=== PATIENT | male | born 1940 | race Caucasian/White ===

== ENCOUNTER 2019-05-24 10:56 | Observation (INO) | payer MEDICARE ==
[2019-05-24] MEDS ORDERED: LIDOCAINE 1% INJ 10MG/ML (20 ML MDV) ONE (12:10)
[2019-05-24] MEDS ORDERED: CLOPIDOGREL 75 MG TAB ONE (12:20)
[2019-05-24] MEDS ORDERED: CLOPIDOGREL 75 MG TAB PO ONE (12:26)
[2019-05-24] MEDS ORDERED: BIVALIRUDIN BOLUS 250 MG/50 ML IV ONE (12:27)
[2019-05-24] MEDS ORDERED: BIVALIRUDIN 250 MG in SODIUM CHLORIDE 0.9% 50 ML IV ONE (12:27)
[2019-05-24] MEDS ORDERED: ONDANSETRON 4 MG/2 ML VIAL ONE (12:28)
[2019-05-24] MEDS ORDERED: ONDANSETRON 4 MG/2 ML VIAL IVP ONE (12:30)
[2019-05-24] MEDS: niCARdipine Syringe (1,000 mcg/10 mL) INTRACORON ONE ×2 (12:36→12:44)
[2019-05-24] MEDS: NITROGLYCERIN 1000MCG/10ML SYRINGE INTRACORON ONE ×2 (12:44→12:50)
[2019-05-24] MEDS ORDERED: IV FLUID CONTINUATION 800 ML IV ONE (12:48)
[2019-05-24] MEDS ORDERED: ATROPINE SULFATE 0.1 MG/ML 10ML SYRINGE IV PRN (12:58)
[2019-05-24] MEDS ORDERED: MAG HYDROX/AL HYDROX/SIMETH 30 ML CUP PO PRN (12:58)
[2019-05-24] MEDS ORDERED: NITROGLYCERIN SL TABS 0.4 MG TAB SUBLINGUAL PRN (12:58)
[2019-05-24] MEDS ORDERED: ZOLPIDEM 5 MG TAB PO PRN (12:58)
[2019-05-24] MEDS ORDERED: RX INFO: IV CONTRAST WAS GIVEN 1 EACH MISC MISCELLANE PRN (12:58)
[2019-05-24] MEDS ORDERED: SODIUM CHLORIDE 0.9% 1,000 ML IV SCH (13:00)
[2019-05-24] MEDS ORDERED: IOPAMIDOL-370 125ML BTL INJ ONE (13:00)
--- NOTE | 2019-05-24 13:04 | P.PCN ---
Date of Procedure: 05/24/19 Operative Findings: PERCUTANEOUS CORONARY INTERVENTION Performing physician Steve Adams M.D. Procedure performed 1. Successful stenting of the distal right coronary artery using 3.5 x 18 mm Xience MITZY with an excellent angiographic results 2. Successful stenting of the proximal right coronary artery using 4.0 x 23 mm Xience MITZY with an excellent angiographic results Indication This is an 79-year-old gentleman with history of smoking who presented initially to [facility] with a chest discomfort and jaw discomfort and ruled in for acute nondistended. He underwent a heart catheterization over there and that revealed critical disease involving the distal RCA and severe disease involving the proximal RCA. He was brought today to undergo an intervention. Approach Right common femoral artery Complication None Level of sedation Moderate with sedation length of 41 minutes Procedure description After obtaining an informed consent the patient was brought to the cardiac labor relations analyst. I did exchanged the old 6-[place] sheath into a new 6-[place] sheath. Anticoagulation was initiated using Angiomax with bolus and drip. The RCA was engaged using JR4 guide. The RCA was wired using a whisper J-wire. I did balloon angioplasty of the distal RCA using 30 by 12 mm balloon before I deployed 3.5 x 18 mm Xience MITZY the stent was positioned under fluoroscopy guidance and deployed under 16 bree for 20 seconds. I postdilated the stent using 4 mm noncompliant balloon which was inflated under 18 bree for 20 seconds. For the lesion in the proximal RCA did direct stenting using 40 by 23 mm stent. The stent again was positioned under fluoroscopy guidance and deployed under 14 bree for 20 seconds. The following angiogram showed an excellent angiographic results and the procedure was completed without any complications Postprocedure management 1. Dual antiplatelet therapy 2. Risk factors modification 3. Follow-up with the patient
[2019-05-24] MEDS ORDERED: TAMSULOSIN 0.4 MG CAP.ER.24H PO STA (20:52)
[2019-05-24] MEDS ORDERED: METOPROLOL TARTRATE 12.5 MG TAB PO SCH (21:00)
[2019-05-24] MEDS ORDERED: ATORVASTATIN 80 MG TAB PO SCH (21:00)
[2019-05-25 07:56] LABS: African American GFR (CKD) >90 (>60 ml/min/1.73 sqM); Non-African American GFR(CKD) 82 (>60 ml/min/1.73 sqM)
[2019-05-25 08:10] VITALS: TEMP 97.9
[2019-05-25] MEDS ORDERED: TAMSULOSIN 0.4 MG CAP.ER.24H PO SCH ×2 (08:30→21:00)
[2019-05-25] MEDS ORDERED: CLOPIDOGREL 75 MG TAB PO SCH (09:00)
[2019-05-25] MEDS ORDERED: LISINOPRIL 5 MG TAB PO SCH ×2 (09:00→21:00)
[2019-05-25] MEDS ORDERED: ASPIRIN 325 MG TAB PO SCH (09:00)
[2019-05-25] MEDS ORDERED: METOPROLOL TARTRATE 25 MG TAB PO SCH (09:00)
[2019-05-25] MEDS ORDERED: LISINOPRIL 2.5 MG TAB PO SCH (09:00)
[2019-05-25] MEDS ORDERED: FAMOTIDINE 20 MG TAB PO SCH (09:00)
[2019-05-25 11:47] VITALS: BP 139/79; PULSE 60; RESP 20
--- NOTE | 2019-05-25 11:59 | P.HPIM ---
History of Present Illness H&P Date: 05/25/19 Chief Complaint: Chest pain HISTORY AND PHYSICAL AND DISCHARGE SUMMARY: This is an 79-year-old male patient of Dr. Zavaleta with past medical history of benign prostatic hypertrophy, osteoarthritis, tobacco use and dependence. Patient initially presented to [facility] after having jaw pain for the past 5 days occurring at night lasting initially only a few minutes but became more persistent. The patient does not follow with a dosimetrist has never had a stress test or heart catheterization in the past. He denied having any chest pain or shortness of breath. He did have some nausea that resolved in the hospital. EKG showed ST changes in inferior leads. Troponin was elevated on 3 draws. Patient's vital signs were stable. Initial troponin 2.249. Chest x-ray revealed limited study. No definite acute infiltr ate or vascular decompensation. Cardiology was consulted and Dr. Adams took the patient for heart catheterization which revealed critical disease involving the distal RCA and severe disease involving the proximal RCA. Patient was then transferred to [facility]. Patient was taken directly to the Apiculturist underwent successful stenting of the distal right coronary artery and successful stenting of the proximal right coronary artery. Patient denies any chest pain, shortness of breath. He has a small amount of bruising in the right groin, no hematoma. Patient has been afebrile, heart rate 60, blood pressure 139/79, pulse ox 93% on room air. Repeat creatinine is 0.84. Patient has been seen by Dr. Foote are ready this morning and cleared for discharge. Patient will be discharged home today in stable condition. Review of Systems Constitutional: Denies chills, Denies fatigue, Denies fever, Denies lethargy, Denies malaise, Denies poor appetite, Denies weakness Eyes: denies blurred vision, denies pain, denies loss of vision Ears, nose, mouth and throat: Reports mouth pain, Denies dysphagia, Denies headache, Denies sore throat, Denies vertigo Cardiovascular: Denies chest pain, Denies decreased exercise tolerance, Denies dyspnea on exertion, Denies edema, Denies irregular heart beat, Denies leg edema, Denies lightheadedness, Denies shortness of breath, Denies syncope Respiratory: Denies cough, Denies cough with sputum, Denies dyspnea, Denies excessive sputum, Denies hemoptysis, Denies home oxygen, Denies respiratory infections, Denies wheezing Gastrointestinal: Denies abdominal pain, Denies diarrhea, Denies loss of appetite, Denies nausea, Denies vomiting Genitourinary: Denies dysuria, Denies urinary frequency, Denies urinary retention Musculoskeletal: Denies frequent falls, Denies gait dysfunction, Denies muscle weakness, Denies myalgias Integumentary: Denies pruritus, Denies rash, Denies wounds Neurological: Denies change in mentation, Denies confusion, Denies gait dysfunction, Denies numbness, Denies seizures, Denies vertigo, Denies weakness Psychiatric: Denies anxiety, Denies depression Endocrine: Denies fatigue, Denies weight change Past Medical History Past Medical History: Osteoarthritis (OA), Prostate Disorder Additional Past Medical History / Comment(s): Generalized osteoarthritis, benign prostatic hypertrophy. Additional Past Alcohol Use History / Comment(s): She has been smoking half a pack a cigarettes. Patient does not have home oxygen, no nebulizer, no CPAP. He is and lives at home with his . He is independent for ADLs. - Past Family History Mother Additional Family Medical History / Comment(s): Mother at age 86 from outside numbers dementia. Father Additional Family Medical History / Comment(s): Father at age 71 from old age. Sister(s) Additional Family Medical History / Comment(s): Patient has one sister that at age 60 from pancreatic cancer. Brother(s) Additional Family Medical History / Comment(s): Patient had 1 brother that under the age of 1. Patient has 2 daughters with no major medical problems. Medications and Allergies Home Medications Medication Instructions Recorded Confirmed Type Tamsulosin HCl [Flomax] 0.8 mg PO HS 05/24/19 05/24/19 History Aspirin 81 mg PO DAILY chew 05/25/19 Rx Atorvastatin [Lipitor] 80 mg PO HS #30 tab 05/25/19 Rx Clopidogrel [Plavix] 75 mg PO DAILY #30 tab 05/25/19 Rx Lisinopril [Zestril] 5 mg PO HS #30 tab 05/25/19 Rx Metoprolol Tartrate [Lopressor] 25 mg PO DAILY #30 tab 05/25/19 Rx Nitroglycerin Sl Tabs [Nitrostat] 0.4 mg SUBLINGUAL Q5M PRN #25 tab 05/25/19 Rx Allergies Allergy/AdvReac Type Severity Reaction Status Date / Time iodine Allergy Itching Verified 05/24/19 13:56 Physical Exam Vitals: Intake and Output 05/23/19 05/24/19 05/24/19 22:59 06:59 14:59 Intake Total 316 Balance 316 Intake: IV 316 Other: Weight 90 kg Gen: This is an 79-year-old male. Patient is resting bed appears to be comfortable and in no acute distress. HEENT: Head is atraumatic, normocephalic. Pupils equal, round. Sclerae is anicteric. NECK: Supple. No JVD. No lymphadenopathy. No thyromegaly. LUNGS: Clear to auscultation. No wheezes or rhonchi. No intercostal retractions. HEART: Regular rate and rhythm. No murmur. ABDOMEN: Soft. Bowel sounds are present. No masses. No tenderness. EXTREMITIES: No pedal edema. No calf tenderness. NEUROLOGICAL: Patient is awake, alert and oriented x3. Cranial nerves 2 through 12 are grossly intact. Results CBC & Chem 7: 05/25/19 05:59 Thrombosis Risk Factor Assmnt - DVT/VTE Prophylaxis DVT/VTE Prophylaxis: Pharmacologic Prophylaxis ordered Assessment and Plan Plan: 1. Non-ST elevated myocardial infarction status post successful stenting of the distal right coronary artery and successful stenting of the proximal right coronary artery. Consult with cardiology appreciated. Continue aspirin, atorvastatin, Plavix, lisinopril 2.5 mg daily, Lopressor 12.5 mg twice daily. 2. History of iodine ALLERGY. Continue IV fluids and recheck creatinine in the morning. 3. Tobacco use and dependence. 4. Benign prostatic hypertrophy. Continue Flomax 0.8 mg daily. 5. Generalized osteoarthritis. 6. GI prophylaxis. Pepcid. Patient will be admitted to the hospital for a minimum of 2 night stay. Discharge plan: home Discharge Medication List Tamsulosin HCl [Flomax] 0.8 mg PO HS 05/24/19 [History] Aspirin 81 mg PO DAILY chew 05/25/19 [Rx] Atorvastatin [Lipitor] 80 mg PO HS #30 tab 05/25/19 [Rx] Clopidogrel [Plavix] 75 mg PO DAILY #30 tab 05/25/19 [Rx] Lisinopril [Zestril] 5 mg PO HS #30 tab 05/25/19 [Rx] Metoprolol Tartrate [Lopressor] 25 mg PO DAILY #30 tab 05/25/19 [Rx] Nitroglycerin Sl Tabs [Nitrostat] 0.4 mg SUBLINGUAL Q5M PRN #25 tab 05/25/19 [Rx] Impression and plan of care have been directed as dictated by the signing physician. Lashell Fox nurse practitioner acting as scribe for signing physician.
[2019-05-25 12:25] VITALS: BMI 28.5
--- NOTE | 2019-05-25 12:51 | PN ---
PROGRESS NOTE Mr. Valdovinos is an 79-year-old gentleman who presented with chest pain and had a non-ST elevation IA at [facility] underwent cardiac cath was by Dr. Adams, transferred here. He had stenting of distal and proximal RCA with good result. Postprocedure course is uneventful. His right groin is clean and dry. Vitals are stable. No JVD. S1, S2 heard normally. Lungs reveal diminished air entry. Abdomen and lower extremity exam unchanged. Right groin is clean and dry. EKG and labs are unremarkable. Patient can be discharged today and he will see Dr. Adams in one week. Discharge instructions regarding his medications, diet, activity were given. I personally gave all the prescriptions for the patient. MMODL / IJN: [id number] /
[2019-05-26] MEDS ORDERED: ASPIRIN 81 MG PO SCH (09:00)
== END 2019-05-25 12:51 | disposition home or self-care (01) ==
LOC: INTOOBSV 11:46 → 3SCARD 11:46 → UNDODISIN 05-25 12:51
PROVIDERS: ADMIT Internal Medicine Geriatric Medicine; ATTEND Internal Medicine Geriatric Medicine
DX: I21.4 Non-ST elevation (NSTEMI) myocardial infarction (principal); I25.10 Atherosclerotic heart disease of native coronary artery without angina pectoris; M15.9 Polyosteoarthritis, unspecified; N40.0 Benign prostatic hyperplasia without lower urinary tract symptoms; Z79.02 Long term (current) use of antithrombotics/antiplatelets; Z79.82 Long term (current) use of aspirin; Z79.899 Other long term (current) drug therapy; Z80.0 Family history of malignant neoplasm of digestive organs; Z91.041 Radiographic dye allergy status; F17.210 Nicotine dependence, cigarettes, uncomplicated
CPT/HCPCS: 93005; 82565; G0378 ×2; G0379; C9600; C1760; C1769 ×3; C1887; C1725 ×2; C1894; C1874; J2405; J0583; Q9967

== ENCOUNTER → 2022-04-17 | Outpatient (CLI) | payer MEDICARE | END | disposition home or self-care (01) | LOC: LABPAT 08:13 | PROVIDERS: ATTEND Internal Medicine Interventional Cardiology | DX: Z53.9 Procedure and treatment not carried out, unspecified reason (principal) ==

== ENCOUNTER 2022-04-22 07:44 | Day surgery (SDC) | payer MEDICARE ==
[~2022-04-22 07:44] MED LIST: ALPRAZolam 0.25 MG TAB PO PRN; ALPRAZolam 0.5 MG TAB PO PRN; ASPIRIN 325 MG TAB PO STA; ATORVASTATIN 80 MG TAB PO STA; HEPARIN SODIUM,PORCINE 10,000 UNIT in SODIUM CHLORIDE 0.9% 1,000 ML IRRIGATION PRN; HEPARIN SODIUM,PORCINE 2,500 UNIT in SODIUM CHLORIDE 0.9% 250 ML IRRIGATION PRN; NITROGLYCERIN SL TABS 0.4 MG TAB SUBLINGUAL PRN; SODIUM CHLORIDE 0.9% 1,000 ML in EMPTY BAG 1 BAG IV SCH
[2022-04-22 08:08] VITALS: RESP 18; TEMP 98.1
[2022-04-22] MEDS ORDERED: VERAPAMIL 2.5 MG/ML 2 ML AMP ONE (09:02)
[2022-04-22] MEDS ORDERED: fentaNYL (PF) 50 MCG/ML 2 ML AMP ONE (09:25)
[2022-04-22] MEDS ORDERED: MIDAZOLAM 2 MG/2 ML VIAL IV ONE ×3 (09:35→09:56)
[2022-04-22] MEDS ORDERED: fentaNYL (PF) 50 MCG/ML 2 ML AMP IV ONE (09:43)
[2022-04-22] MEDS ORDERED: VERAPAMIL SYRINGE (5 MG/10 ML) INTRAARTER ONE (09:48)
[2022-04-22] MEDS ORDERED: LIDOCAINE 1% INJ 10MG/ML (5 ML VIAL-PF) SQ ONE (09:48)
[2022-04-22] MEDS ORDERED: HEPARIN SODIUM 1,000 UN/ML (10ML VL) IV ONE ×2 (09:48→09:55)
[2022-04-22] MEDS ORDERED: CLOPIDOGREL 75 MG TAB ONE (09:59)
[2022-04-22] MEDS ORDERED: CLOPIDOGREL 75 MG TAB PO ONE (10:06)
[2022-04-22] MEDS ORDERED: IOPAMIDOL-370 125ML BTL INJ ONE (10:11)
[2022-04-22] MEDS ORDERED: NITROGLYCERIN SL TABS 0.4 MG TAB SUBLINGUAL PRN ×2 (10:25→10:26)
[2022-04-22] MEDS ORDERED: MAG HYDROX/AL HYDROX/SIMETH 30 ML CUP PO PRN (10:26)
[2022-04-22] MEDS ORDERED: ZOLPIDEM 5 MG TAB PO PRN (10:26)
[2022-04-22] MEDS ORDERED: RX INFO: IV CONTRAST WAS GIVEN 1 EACH MISC MISCELLANE PRN (10:26)
[2022-04-22] MEDS ORDERED: ATROPINE SULFATE 0.1 MG/ML 10ML SYRINGE IV PRN (10:26)
[2022-04-22] MEDS ORDERED: SODIUM CHLORIDE 0.9% 1,000 ML in EMPTY BAG 1 BAG IV SCH (10:30)
--- NOTE | 2022-04-22 10:34 | P.PCN ---
Date of Procedure: 04/22/22 Operative Findings: CARDIAC CATHETERIZATION AND PERCUTANEOUS CORONARY INTERVENTION PERFORMING PHYSICIAN: Steve Adams MD, [facility] PROCEDURE PERFORMED: 1. Selective right and left coronary angiogram 2. Successful stenting of mid LAD using 3.5 x 18 mm Xience MITZY with an excellent angiographic results and without adjunctive use of IVUS INDICATION: Chest discomfort in this 82-year-old gentleman who underwent myocardial perfusion imaging stress test and that showed an anterior ischemia. He is known to have CAD with prior stenting of the RCA as well as hypertension and dyslipidemia COMPLICATION: None APPROACH: Right radial artery LEVEL OF SEDATION: Moderate with the sedation time off 26 minutes PROCEDURE DESCRIPTION: After obtaining an informed consent the patient was brought to the cardiac label sewer. The right radial artery was cannulated using micropuncture technique, the micropuncture wire passed easily then I placed a 6-[place] sheath. I gave the patient after that 2 mg of verapamil intra-arterial and a total of 6000 use of heparin and intravenous. Selective right and left coronary angiogram performed using JR4 and JL 3.5 catheters. After that I did intervene on the LAD. The procedure was completed was no complication SELECTIVE CORONARY ANGIOGRAM: The right coronary artery: Large caliber vessel and a dominant vessel. The proximal RCA has intermediate lesion appears to be in the range of 60%. The RCA after that is a stented and the stent is patent. The mid RCA has another intermediate lesion was eccentric lesion appears to be in the range of 50-60% as well. Distally the RCA bifurcates into PDA and PLV branches. The PDA has also an intermediate lesion appears to be in the range of 50%. Left main: Is angiographically normal. Bifurcates into an LCx and LAD The left circumflex: Large-caliber vessel nondominant vessel. The LCx has intermediate lesion appeared to be in the range of 60%. The left anterior descending artery: Large caliber vessel. The proximal LAD appeared to have mild disease only. The mid LAD after the takeoff of a large diagonal branch has a lesion appeared to be in the range of 80%. The LAD distally appears to be angiographically normal. The diagonal appeared to be angiographically normal PCI OF THE LAD: Anticoagulation was initiated using heparin with continuous ACT monitoring. Subsequently I did engage the left main using JL 3.5 guiding catheter. I did wire the LAD using a run-through wire. Intravascular ultrasound was performed and showed a diameter of the LAD about 3.5-4 mm. I did predilatation using 3.5 mm balloon before I deployed 3.5 x 18 mm stent where the stent was positioned under fluoroscopy guidance and deployed under 20 bree for 20 seconds. The following angiogram showed an excellent angiographic results was JOAQUÍN-3 flow. The procedure was completed was no complication CONCLUSION: Severe disease involving the mid LAD. I did perform successful stenting of the LAD Intermediate disease involving the RCA Intermediate disease involving the LCx POSTPROCEDURE MANAGEMENT: 1. Dual antiplatelet therapy using aspirin and Plavix for 6 month 2. FFR of the RCA and LCx if the patient remains symptomatic 3. Follow-up with the patient
[2022-04-22] MEDS ORDERED: SODIUM CHLORIDE 0.9% 500 ML 500 ML IV ONE (12:00)
[2022-04-22 13:52] VITALS: BP 120/67; PULSE 65
[2022-04-22] MEDS ORDERED: TAMSULOSIN 0.4 MG CAP.ER.24H PO SCH (21:00)
[2022-04-22] MEDS ORDERED: ATORVASTATIN 80 MG TAB PO SCH (21:00)
[2022-04-22] MEDS ORDERED: lisinopriL 10 MG TAB PO SCH (21:00)
[2022-04-23] MEDS ORDERED: ASPIRIN 81 MG PO SCH (09:00)
[2022-04-23] MEDS ORDERED: B6 PO SCH (09:00)
[2022-04-23] MEDS ORDERED: NON FORMULARY DRUG (Omega-3 Fatty Acids/Fish Oil [Omega-3 Fish Oil 1,200 Mg Sfgl] 1 EACH C PO SCH (09:00)
[2022-04-23] MEDS ORDERED: CLOPIDOGREL 75 MG TAB PO SCH (09:00)
[2022-04-23] MEDS ORDERED: ASCORBIC ACID 500 MG TAB PO SCH (09:00)
[2022-04-23] MEDS ORDERED: [UNRECOGNIZED DRUG - OTHER] PO SCH (09:00)
[2022-04-23] MEDS ORDERED: FOLIC ACID-VIT B COMPLEX-VIT C 1 CAP PO SCH (09:00)
[2022-04-23] MEDS ORDERED: B12 PO SCH (09:00)
[2022-04-23] MEDS ORDERED: METOPROLOL TARTRATE 25 MG TAB PO SCH (09:00)
== END 2022-04-22 14:28 | disposition home or self-care (01) ==
LOC: CATHCVL 07:44 → 6NMEDSUR 10:31 → CATHCVL 14:28
PROVIDERS: ATTEND Internal Medicine Interventional Cardiology
DX: I25.10 Atherosclerotic heart disease of native coronary artery without angina pectoris (principal); E78.5 Hyperlipidemia, unspecified; I10 Essential (primary) hypertension; Z95.5 Presence of coronary angioplasty implant and graft
CPT/HCPCS: 93458; 92978; C9600; C1887; C1769 ×2; C1894; C1725; C1753; C1874; J2250; J2001; J3010; J1644; Q9967

== ENCOUNTER → 2022-08-09 | Outpatient (CLI) | payer MEDICARE ==
--- NOTE | 2022-08-09 10:39 | XR ---
EXAMINATION TYPE: XR sacroiliac joint comp BILAT DATE OF EXAM: 08/09/2022 COMPARISON: None HISTORY: Right-sided pain TECHNIQUE: 3 views sacroiliac joints FINDINGS: Sacroiliac joints are patent. The sacrum appears intact. No acute fracture or dislocation i s evident. IMPRESSION: 1. No acute osseous abnormality sacroiliac joints
[2022-08-09 16:18] LABS: ALT 18 U/L (10-49); AST 18 U/L (14-35); Albumin 4.2 d/dL (3.8-4.9); Albumin/Globulin Ratio 1.83 Ratio (1.60-3.17); Alkaline Phosphatase 67 U/L (41-126); BUN/Creat Ratio 17.78 Ratio (12.00-20.00); Calcium 9.7 mg/dL (8.7-10.3); Carbon Dioxide 24.9 mmol/L (21.6-31.8); Chloride 107 mmol/L (96-109); Globulin 2.3 d/dL (1.6-3.3); Glucose 105 mg/dL (70-110); Potassium 4.7 mmol/L (3.5-5.5); Sodium 140 mmol/L (135-145); Total Bilirubin 0.5 mg/dL (0.3-1.2); Total Protein 6.5 d/dL (6.2-8.2)
[2022-08-09 18:19] LABS: Basophils # (A) 0.04 X 10*3/uL (0.00-0.10); Basophils % (A) 0.6 %; Eosinophils # (A) 0.22 X 10*3/uL (0.04-0.35); Eosinophils % (A) 3.2 %; HCT 51.3 % (39.6-50.0); HGB 16.5 d/dL (12.0-15.0); Lymphocytes # (A) 1.88 X 10*3/uL (0.90-5.00); Lymphocytes % (A) 27.5 %; MCH 30.9 pg (27.0-32.0); MCHC 32.2 d/dL (32.0-37.0); MCV 96.1 FL (80.0-97.0); Mean Platelet Volume 10.4 FL (9.5-12.2); Monocytes % (A) 8.8 %; NRBC Per 100 WBC 0 X 10*3/uL (0.00-0.01); Neutrophils # (A) 4.08 X 10*3/uL (1.80-7.70); Neutrophils % (A) 59.8 %; Platelet Count 161 X 10*3/uL (140-440); RBC 5.34 X 10*6/uL (4.40-5.60); RDW 13.7 % (11.5-14.5); WBC 6.83 X 10*3/uL (4.50-10.00)
== END | disposition home or self-care (01) ==
LOC: LABWHC1 09:02
PROVIDERS: ATTEND Family Medicine
DX: M53.3 Sacrococcygeal disorders, not elsewhere classified (principal); Z95.5 Presence of coronary angioplasty implant and graft
CPT/HCPCS: 36415; 72202; 80053; 85025

== ENCOUNTER 2022-10-25 09:19 | Emergency (ER) | payer MEDICARE ==
[2022-10-25 09:24] VITALS: RESP 20; TEMP 98
--- NOTE | 2022-10-25 10:16 | XR ---
EXAMINATION TYPE: XR elbow complete RT DATE OF EXAM: 10/25/2022 CLINICAL HISTORY: pain TECHNIQUE: Frontal, lateral and oblique images of the right elbow are obtained. COMPARISON: None. FINDINGS: There is no acute fracture/dislocation evident of the elbow. No abnormal fat pad signs ar e seen. The overlying soft tissue appears unremarkable. IMPRESSION: There is no acute fracture or dislocation of the elbow. ICD 10 NO FRACTURE, INITIAL EVALUATION
--- NOTE | 2022-10-25 10:42 | ED ---
Upper Extremity HPI - General Chief Complaint: Extremity Injury, Upper Stated Complaint: R Arm Pain playing Golf Time Seen by Provider: 10/25/22 09:26 Source: patient, RN notes reviewed Mode of arrival: ambulatory Limitations: no limitations - History of Present Illness Initial Comments: 82-year-old male presents emergency Department chief complaint of right elbow pain. Patient states his golfing states he felt a little twinge in his arm states he can't swing again a worsening symptoms. Patient states he felt a sudden pop in his elbow, forearm region. He states it is bruising noted. Patient denies any other trauma. Patient does have full range of motion denies any paresthesias. - Related Data Home Medications Medication Instructions Recorded Confirmed Tamsulosin HCl [Flomax] 0.8 mg PO HS 05/24/19 04/22/22 Ascorbic Acid [Vitamin C] 1 tab PO DAILY 04/19/22 04/22/22 B12/Methyltetrahydrofolate/B6 1 tab PO DAILY 04/19/22 04/22/22 [Methyl T73-Ewgmhe Folate-P5p (Foltx geq)] [place]-3 Fatty Acids/Fish Oil 1 each PO DAILY 04/19/22 04/22/22 [[place]-3 Fish Oil 1,200 mg Sfgl] Vit B Comp No.3/Folic/C/Biotin 1 tab PO DAILY 04/19/22 04/22/22 [Zina-Jay Rx Tablet] lisinopriL [Zestril] 10 mg PO HS 04/19/22 04/22/22 Previous Rx's Medication Instructions Recorded Aspirin 81 mg PO DAILY chew 05/25/19 Atorvastatin [Lipitor] 80 mg PO HS #30 tab 05/25/19 Metoprolol Tartrate [Lopressor] 25 mg PO DAILY #30 tab 05/25/19 Nitroglycerin Sl Tabs [Nitrostat] 0.4 mg SUBLINGUAL Q5M PRN #25 tab 05/25/19 Allergies Allergy/AdvReac Type Severity Reaction Status Date / Time iodine Allergy Itching Verified 10/25/22 09:23 Review of Systems ROS Statement: Those systems with pertinent positive or pertinent negative responses have been documented in the HPI. ROS Other: All systems not noted in ROS Statement are negative. Past Medical History Past Medical History: Chest Pain / Angina, Hyperlipidemia, Hypertension, Myocardial Infarction (NM), Osteoarthritis (OA), Prostate Disorder Additional Past Medical History / Comment(s): Generalized osteoarthritis, benign prostatic hypertrophy. had a postitve stress test 3 weeks ago Last Myocardial Infarction Date:: 2019 History of Any Multi-Drug Resistant Organisms: None Reported Past Surgical History: Heart Catheterization With Stent Additional Past Surgical History / Comment(s): Heart cath this admission. Past Anesthesia/Blood Transfusion Reactions: No Reported Reaction Additional Past Anesthesia/Blood Transfusion Reaction / Comment(s): Never had transfusion Date of Last Stent Placement:: 05/24/2019 Past Psychological History: No Psychological Hx Reported Smoking Status: Current some day smoker Past Alcohol Use History: None Reported Past Drug Use History: None Reported - Past Family History Mother Additional Family Medical History / Comment(s): Mother at age 86 from outside numbers dementia. Father Additional Family Medical History / Comment(s): Father at age 71 from old age. Sister(s) Additional Family Medical History / Comment(s): Patient has one sister that at age 60 from pancreatic cancer. Brother(s) Additional Family Medical History / Comment(s): Patient had 1 brother that under the age of 1. Patient has 2 daughters with no major medical problems. General Exam Limitations: no limitations General appearance: alert, in no apparent distress Head exam: Present: atraumatic, normocephalic, normal inspection Respiratory exam: Present: normal lung sounds bilaterally. Absent: respiratory distress, wheezes, rales, rhonchi, stridor Cardiovascular Exam: Present: regular rate, normal rhythm, normal heart sounds. Absent: systolic murmur, diastolic murmur, rubs, gallop, clicks Extremities exam: Present: other (Left elbow there is medial tenderness, swelling, ecchymosis noted neurovascular intact full range of motion) Course Vital Signs 10/25/22 09:21 Temperature 98 F Pulse Rate 65 Respiratory 20 Rate Blood Pressure 138/82 O2 Sat by Pulse 96 Oximetry Medical Decision Making - Medical Decision Making Was pt. sent in by a medical professional or institution (, PA, DISABILITY BENEFITS SPECIALIST, urgent care, hospital, or skilled nursing...) When possible be specific @ -No Did you speak to anyone other than the patient for history (EMS, parent, family, police, friend...)? What history was obtained from this source @ -No Did you review nursing and triage notes (agree or disagree)? Why? @ -I reviewed and agree with nursing and triage notes Were old charts reviewed (outside hosp., previous admission, EMS record, old EKG, old radiological studies, urgent care reports/EKG's, skilled nursing records)? Report findings @ -No old charts were reviewed Differential Diagnosis (chest pain, altered mental status, abdominal pain women, abdominal pain men, vaginal bleeding, weakness, fever, dyspnea, syncope, headache, dizziness, GI bleed, back pain, seizure, CVA, palpatations, mental health, musculoskeletal)? @ -Arm fracture, muscle tear, ligament injury EKG interpreted by me (3pts min.). @ -None X-rays interpreted by me (1pt min.). @ -X-ray shows no acute fracture discussion right elbow CT interpreted by me (1pt min.). @ -None done U/S interpreted by me (1pt. min.). @ -None done What testing was considered but not performed or refused? (CT, X-rays, U/S, labs )? Why? @ -None What meds were considered but not given or refused? Why? @ -None Did you discuss the management of the patient with other professionals (professionals i.e. , PA, DISABILITY BENEFITS SPECIALIST, lab, RT, psych nurse, child welfare social worker, pierce and shave press operator, teacher, nuclear officer, case managers)? Give summary @ -No Was smoking cessation discussed for >3mins.? @ -No Was critical care preformed (if so, how long)? @ -No Were there social determinants of health that impacted care today? How? (Homelessness, low income, unemployed, alcoholism, drug addiction, transportation, low edu. Level, literacy, decrease access to med. care, snf, rehab)? @ -No Was there de-escalation of care discussed even if they declined (Discuss DNR or withdrawal of care, Hospice)? DNR status @ -No What co-morbidities impacted this encounter? (DM, HTN, Smoking, COPD, CAD, Cancer, CVA, ARF, Chemo, Hep., AIDS, mental health diagnosis, sleep apnea, morbid obesity)? @ -None Was patient admitted / discharged? Hospital course, mention meds given and route, prescriptions, significant lab abnormalities, going to OR and other pertinent info. @ -Discharge patient's x-rays are negative patient symptoms are consistent with a muscular tear possible ligamentous injury. Patient follow-up with orthopedics return parameters discussed. Undiagnosed new problem with uncertain prognosis? @ -No Drug Therapy requiring intensive monitoring for toxicity (Heparin, Nitro, Insulin, Cardizem)? @ -No Were any procedures done? @ -[No] Diagnosis/symptom? @ -[Right arm/elbow muscles tear] Acute, or Chronic, or Acute on Chronic? @ -[Acute] Uncomplicated (without systemic symptoms) or Complicated (systemic symptoms)? @ -[Uncomplicated] Side effects of treatment? @ -[No] Exacerbation, Progression, or Severe Exacerbation? @ -[No] Poses a threat to life or bodily function? How? (Chest pain, USA, NM, pneumonia, PE, COPD, DKA, ARF, appy, cholecystitis, CVA, Diverticulitis, Homicidal, Suicidal, threat to staff... and all critical care pts) @ -[No] Disposition Clinical Impression: Tear of pronator muscle of right upper extremity, Strain of elbow Disposition: HOME SELF-CARE Condition: Stable Instructions (If sedation given, give patient instructions): Elbow Sprain (ED) Additional Instructions: Please return to the Emergency Department if symptoms worsen or any other concerns. Is patient prescribed a controlled substance at d/c from ED?: No Referrals: Thomas Hussein MD [REFERRING] - 1-2 days Domenico Nails MD [Medical Doctor] - 1-2 days Time of Disposition: 10:41
[2022-10-25 11:14] VITALS: BP 136/80; PULSE 68
== END 2022-10-25 11:13 | disposition home or self-care (01) ==
LOC: EC 09:19
DX: S53.401A Unspecified sprain of right elbow, initial encounter (principal); E78.5 Hyperlipidemia, unspecified; I10 Essential (primary) hypertension; I25.2 Old myocardial infarction; M19.90 Unspecified osteoarthritis, unspecified site; F17.200 Nicotine dependence, unspecified, uncomplicated; Z88.8 Allergy status to other drugs, medicaments and biological substances; Z79.899 Other long term (current) drug therapy; X50.9XXA Other and unspecified overexertion or strenuous movements or postures, initial encounter; Y93.53 Activity, golf
CPT/HCPCS: 99283

== ENCOUNTER 2023-03-21 10:09 | Inpatient (IN) | payer MEDICARE ==
--- NOTE | 2023-03-21 10:36 | ED ---
General Adult HPI - General Chief complaint: Recheck/Abnormal Lab/Rx Stated complaint: Cardiac issues Time Seen by Provider: 03/21/23 10:23 Source: patient, EMS, RN notes reviewed Mode of arrival: EMS Limitations: no limitations - History of Present Illness Initial comments: 83-year-old male presents to the emergency department sent from Dr. Nieves's [place] for slow heart rate with frequent PVCs. Patient reports feeling lightheaded at that time. He denies any current symptoms of shortness of breath, chest pain. He had an EKG performed at his primary care provider's office today in which patient had frequent PVCs and bradycardia. EMS was called to bring the patient in for evaluation. According to the patient, Dr. Nieves also contacted his science center display builder, Dr. Adams. He denies chest pain, shortness of breath, lower extremity edema. - Related Data Home Medications Medication Instructions Recorded Confirmed Tamsulosin HCl [Flomax] 0.8 mg PO HS 05/24/19 03/21/23 [place]-3 Fatty Acids/Fish Oil 1 cap PO DAILY 04/19/22 03/21/23 [[place]-3 Fish Oil 1,200 mg Sfgl] lisinopriL [Zestril] 10 mg PO HS 04/19/22 03/21/23 Cholecalciferol [Vitamin D3 (125 125 mcg PO DAILY 03/21/23 03/21/23 Mcg = 5000 Iu)] Clopidogrel [Plavix] 75 mg PO DAILY 03/21/23 03/21/23 Lactulose 10 gm PO DAILY 03/21/23 03/21/23 Multivit-Mins/Iron/Folic/Lycop 1 tab PO DAILY 03/21/23 03/21/23 [Centrum Men's Tablet] Vitamin B-12(Unknown Dose) 1 tab PO DAILY 03/21/23 03/21/23 traMADol HCL 50 mg PO TID PRN 03/21/23 03/21/23 Previous Rx's Medication Instructions Recorded Aspirin 81 mg PO DAILY chew 05/25/19 Atorvastatin [Lipitor] 80 mg PO HS #30 tab 05/25/19 Metoprolol Tartrate [Lopressor] 25 mg PO DAILY #30 tab 05/25/19 Allergies Allergy/AdvReac Type Severity Reaction Status Date / Time Iodinated Contrast Media Allergy Rash/Hives Verified 03/21/23 12:32 iodine Allergy Itching Verified 10/25/22 09:23 Review of Systems ROS Statement: Those systems with pertinent positive or pertinent negative responses have been documented in the HPI. ROS Other: All systems not noted in ROS Statement are negative. Past Medical History Past Medical History: Chest Pain / Angina, Hyperlipidemia, Hypertension, Myocardial Infarction ([place]), Osteoarthritis ([place]), Prostate Disorder Additional Past Medical History / Comment(s): Generalized osteoarthritis, benign prostatic hypertrophy. had a postitve stress test 3 weeks ago Last Myocardial Infarction Date:: 2019 History of Any Multi-Drug Resistant Organisms: None Reported Past Surgical History: Heart Catheterization With Stent Additional Past Surgical History / Comment(s): Heart cath this admission. Past Anesthesia/Blood Transfusion Reactions: No Reported Reaction Additional Past Anesthesia/Blood Transfusion Reaction / Comment(s): Never had transfusion Date of Last Stent Placement:: 05/24/2019 Past Psychological History: No Psychological Hx Reported Smoking Status: Current every day smoker Past Alcohol Use History: None Reported Past Drug Use History: None Reported - Past Family History Mother Additional Family Medical History / Comment(s): Mother at age 86 from outside numbers dementia. Father Additional Family Medical History / Comment(s): Father at age 71 from old age. Sister(s) Additional Family Medical History / Comment(s): Patient has one sister that at age 60 from pancreatic cancer. Brother(s) Additional Family Medical History / Comment(s): Patient had 1 brother that under the age of 1. Patient has 2 daughters with no major medical problems. General Exam Limitations: no limitations General appearance: alert, in no apparent distress Head exam: Present: atraumatic, normocephalic, normal inspection Eye exam: Present: normal appearance, PERRL, EOMI. Absent: scleral icterus, conjunctival injection, periorbital swelling ENT exam: Present: normal exam, mucous membranes moist Neck exam: Present: normal inspection. Absent: tenderness, meningismus, lymphadenopathy Respiratory exam: Present: normal lung sounds bilaterally. Absent: respiratory distress, wheezes, rales, rhonchi, stridor Course Vital Signs 03/21/23 03/21/23 03/21/23 10:18 11:00 12:00 Temperature 98.0 F Pulse Rate 62 63 59 L Respiratory 18 20 21 Rate Blood Pressure 159/86 159/135 166/89 O2 Sat by Pulse 95 95 96 Oximetry 03/21/23 03/21/23 03/21/23 12:30 14:00 15:00 Temperature Pulse Rate 70 Respiratory 22 Rate Blood Pressure 152/84 156/90 156/90 O2 Sat by Pulse Oximetry Medical Decision Making - Medical Decision Making Was pt. sent in by a medical professional or institution (, FRANCO, MANAGER OF SUSTAINABILITY, urgent care, hospital, or assisted...) When possible be specific @ -Sent in by Dr. Nieves's office via EMS Did you speak to anyone other than the patient for history (EMS, parent, family, police, friend...)? What history was obtained from this source @ -No Did you review nursing and triage notes (agree or disagree)? Why? @ -I reviewed and agree with nursing and triage notes Were old charts reviewed (outside hosp., previous admission, EMS record, old EKG, old radiological studies, urgent care reports/EKG's, assisted records)? Report findings @ -No old charts were reviewed Differential Diagnosis (chest pain, altered mental status, abdominal pain women, abdominal pain men, vaginal bleeding, weakness, fever, dyspnea, syncope, headache, dizziness, GI bleed, back pain, seizure, CVA, palpatations, mental health, musculoskeletal)? @ -Differential Dizziness: Benign paroxysmal positional Vertigo, Menieres disease, otitis media, acoustic neuroma, vertebrobasilar insufficiency, cerebellar stroke, encephalitis, hypovolemic, arrhythmia, coronary artery syndrome, anemia, this is not meant to be an all-inclusive list EKG interpreted by me (3pts min.). @ -EKG at 11:00 shows sinus rhythm with occasional PVCs rate 64, MO 207, QRS 115 X-rays interpreted by me (1pt min.). @ -Chest XR shows no acute process with COPD type changes CT interpreted by me (1pt min.). @ -None done U/S interpreted by me (1pt. min.). @ -None done What testing was considered but not performed or refused? (CT, X-rays, U/S, labs)? Why? @ -None What meds were considered but not given or refused? Why? @ -None Did you discuss the management of the patient with other professionals (jeanette paris i.e. Dr., PA, MANAGER OF SUSTAINABILITY, lab, RT, psych nurse, social insurance administrator, trial lawyer, teacher, licensed loan officer, returned case inspector)? Give summary @ -Management discussed with Dr. Diggs who was accepting of the admission. Was smoking cessation discussed for >3mins.? @ -No Was critical care preformed (if so, how long)? @ -No Were there social determinants of health that impacted care today? How? (Homelessness, low income, unemployed, alcoholism, drug addiction, transportation, low edu. Level, literacy, decrease access to med. care, shelter, rehab)? @ -No Was there de-escalation of care discussed even if they declined (Discuss DNR or withdrawal of care, Hospice)? DNR status @ -No What co-morbidities impacted this encounter? (DM, HTN, Smoking, COPD, CAD, Cancer, CVA, ARF, Chemo, Hep., AIDS, mental health diagnosis, sleep apnea, morbid obesity)? @ -None Was patient admitted / discharged? Hospital course, mention meds given and route, prescriptions, significant lab abnormalities, going to OR and other pe rtinent info. @ -Admitted. Patient presented to the emergency department via EMS from Dr. Nieves's office. Patient was found to be bradycardic with frequent PVCs on EKG performed in the office. He had this done because he reported intermittent episodes of lightheadedness. He reports that he was feeling that way when the EKG was taken. The EKG showed frequent PVCs with bradycardia. Our EKG obtained shows occasional PVCs rate 64. Patient placed on camp program director. Laboratory studies obtained.CBC essentially unremarkable; CMP shows sodium 138, testing 4.4, creatinine 0.88, troponin 0.01 2 . Patient will be admitted with cardiology consult. Case discussed with Dr. Diggs who is accepting of the admission. Patient stable at time of admission. Case discussed with Dr. Velasco Undiagnosed new problem with uncertain prognosis? @ -No Drug Therapy requiring intensive monitoring for toxicity (Heparin, Nitro, Insulin, Cardizem)? @ -No Were any procedures done? @ -No Diagnosis/symptom? @ -Bradycardia, PVCs, lightheadedness Acute, or Chronic, or Acute on Chronic? @ -Acute Uncomplicated (without systemic symptoms) or Complicated (systemic symptoms)? @ -Uncomplicated Side effects of treatment? @ -No Exacerbation, Progression, or Severe Exacerbation? @ -No Poses a threat to life or bodily function? How? (Chest pain, [place], GA, pneumonia, PE, COPD, DKA, ARF, appy, cholecystitis, CVA, Diverticulitis, Homicidal, Suicidal, threat to staff... and all critical care pts) @ -No - Lab Data Result diagrams: 03/21/23 10:37 03/21/23 10:37 Lab Results 03/21/23 03/21/23 03/21/23 Range/Units 10:37 10:37 10:37 WBC 7.5 (3.8-10.6) k/uL RBC 5.39 (4.30-5.90) m/uL Hgb 16.7 (13.0-17.5) gm/dL Hct 50.7 (39.0-53.0) % MCV 94.0 (80.0-100.0) fL MCH 30.9 (25.0-35.0) pg MCHC 32.9 (31.0-37.0) g/dL RDW 13.5 (11.5-15.5) % Plt Count 161 (150-450) k/uL MPV 7.3 Neutrophils % 66 % Lymphocytes % 24 % Monocytes % 6 % Eosinophils % 2 % Basophils % 0 % Neutrophils # 5.0 (1.3-7.7) k/uL Lymphocytes # 1.8 (1.0-4.8) k/uL Monocytes # 0.4 (0-1.0) k/uL Eosinophils # 0.2 (0-0.7) k/uL Basophils # 0.0 (0-0.2) k/uL PT (10.0-12.5) sec INR (<1.2) D-Dimer (<0.60) mg/L FEU Sodium 138 (137-145) mmol/L Potassium 4.4 (3.5-5.1) mmol/L Chloride 109 H (98-107) mmol/L Carbon Dioxide 23 (22-30) mmol/L Anion Gap 6 mmol/L BUN 21 H (9-20) mg/dL Creatinine 0.88 (0.66-1.25) mg/dL Est GFR (CKD-EPI)AfAm >90 (>60 ml/min/1.73 sqM) Est GFR (CKD-EPI)NonAf 79 (>60 ml/min/1.73 sqM) Glucose 106 H (74-99) mg/dL Calcium 9.2 (8.4-10.2) mg/dL Total Bilirubin 0.9 (0.2-1.3) mg/dL AST 25 (17-59) U/L ALT 14 (4-49) U/L Alkaline Phosphatase 74 (38-126) U/L Troponin I 0.012 (0.000-0.034) ng/mL Total Protein 6.9 (6.3-8.2) g/dL Albumin 3.9 (3.5-5.0) g/dL 03/21/23 03/21/23 Range/Units 10:37 10:37 WBC (3.8-10.6) k/uL RBC (4.30-5.90) m/uL Hgb (13.0-17.5) gm/dL Hct (39.0-53.0) % MCV (80.0-100.0) fL MCH (25.0-35.0) pg MCHC (31.0-37.0) g/dL RDW (11.5-15.5) % Plt Count (150-450) k/uL MPV Neutrophils % % Lymphocytes % % Monocytes % % Eosinophils % % Basophils % % Neutrophils # (1.3-7.7) k/uL Lymphocytes # (1.0-4.8) k/uL Monocytes # (0-1.0) k/uL Eosinophils # (0-0.7) k/uL Basophils # (0-0.2) k/uL PT 11.2 (10.0-12.5) sec INR 1.0 (<1.2) D-Dimer 1.90 H (<0.60) mg/L FEU Sodium (137-145) mmol/L Potassium (3.5-5.1) mmol/L Chloride (98-107) mmol/L Carbon Dioxide (22-30) mmol/L Anion Gap mmol/L BUN (9-20) mg/dL Creatinine (0.66-1.25) mg/dL Est GFR (CKD-EPI)AfAm (>60 ml/min/1.73 sqM) Est GFR (CKD-EPI)NonAf (>60 ml/min/1.73 sqM) Glucose (74-99) mg/dL Calcium (8.4-10.2) mg/dL Total Bilirubin (0.2-1.3) mg/dL AST (17-59) U/L ALT (4-49) U/L Alkaline Phosphatase (38-126) U/L Troponin I (0.000-0.034) ng/mL Total Protein (6.3-8.2) g/dL Albumin (3.5-5.0) g/dL Disposition Clinical Impression: Lightheadedness, Frequent PVCs, Bradycardia Disposition: ADMITTED IP TO THIS HOSP Condition: Stable Is patient prescribed a controlled substance at d/c from ED?: No
[2023-03-21 10:57] LABS: Basophils % (A) 0 %; Eosinophils # (A) 0.2 k/uL (0-0.7); Eosinophils % (A) 2 %; HCT 50.7 % (39.0-53.0); HGB 16.7 gm/dL (13.0-17.5); Lymphocytes # (A) 1.8 k/uL (1.0-4.8); Lymphocytes % (A) 24 %; MCH 30.9 pg (25.0-35.0); MCHC 32.9 g/dL (31.0-37.0); Mean Platelet Volume 7.3; Monocytes # (A) 0.4 k/uL (0-1.0); Monocytes % (A) 6 %; Neutrophils % (A) 66 %; Platelet Count 161 k/uL (150-450); RBC 5.39 m/uL (4.30-5.90); RDW 13.5 % (11.5-15.5); WBC 7.5 k/uL (3.8-10.6)
[2023-03-21 11:13] LABS: Prothrombin Time 11.2 sec (10.0-12.5)
[2023-03-21 11:17] LABS: ALT 14 U/L (4-49); AST 25 U/L (17-59); African American GFR (CKD) >90 (>60 ml/min/1.73 sqM); Albumin 3.9 g/dL (3.5-5.0); Alkaline Phosphatase 74 U/L (38-126); Anion Gap 6 mmol/L; Blood Urea Nitrogen 21 mg/dL (9-20); Calcium 9.2 mg/dL (8.4-10.2); Carbon Dioxide 23 mmol/L (22-30); Chloride 109 mmol/L (98-107); Glucose 106 mg/dL (74-99); Non-African American GFR(CKD) 79 (>60 ml/min/1.73 sqM); Sodium 138 mmol/L (137-145); Total Bilirubin 0.9 mg/dL (0.2-1.3); Total Protein 6.9 g/dL (6.3-8.2)
--- NOTE | 2023-03-21 11:24 | XR ---
EXAMINATION TYPE: XR chest 2V DATE OF EXAM: 03/21/2023 11:16 AM CLINICAL INDICATION:Male, 83 years old with history of lightheaded, palpitations; COMPARISON: None TECHNIQUE: XR chest 2V Frontal and lateral views of the chest. FINDINGS: Lungs/Pleura: Low lung volumes are present. There is no evidence of pleural effusion, focal consolida tion, or pneumothorax. Pulmonary vascularity: Unremarkable. Heart/mediastinum: Cardiomediastinal silhouette is unremarkable. Atherosclerotic calcifications are seen in the aorta. Musculoskeletal: Degenerative changes of the shoulder joints. Other findings: None IMPRESSION: 1. No acute cardiopulmonary disease process. 2. COPD changes.
[2023-03-21 11:50] LABS: Potassium 4.4 mmol/L (3.5-5.1)
[2023-03-21] MEDS ORDERED: MORPHINE SULFATE 4 MG/ML SYRINGE IV PRN (13:43)
[2023-03-21] MEDS ORDERED: ACETAMINOPHEN TAB 325 MG TAB PO PRN (13:43)
[2023-03-21] MEDS ORDERED: NALOXONE 0.4 MG/ML 1 ML VIAL IV PRN (13:43)
[2023-03-21] MEDS: SODIUM CHLORIDE 0.9% 1,000 ML IV ONE (13:58)
[2023-03-21] MEDS ORDERED: traMADol 50 MG TAB PO PRN (14:03)
--- NOTE | 2023-03-21 14:12 | P.HPIM ---
History of Present Illness H&P Date: 03/21/23 History of present illness; patient 83-year-old gentleman with past medically significant for hyperlipidemia, coronary artery disease s/p multiple stent placement, hypertension presented to the ER for lightheadedness. Patient was sent into the ER from PCPs office as patient was found to have low blood pressure there. Patient stated that for the last few weeks he has been noticing that he was lightheaded at times. Denies any chest pain or shortness of breath. There was no complaint of palpitation. Denies any lethargy or weakness. There was no complaint of fever or chills. Patient went to his PCPs office for regular checkup and daily was found to have low heart rate and blood pressure, was told to come to the ER. Initial lab work done in the ER showed WBC 7.5, hemoglobin 16.7, platelet count 167, sodium 138, potassium 4.4, BUN 21, creatinine 0.88, glucose 106, bilirubin 0.9, AST 25, ALT 14, troponin 0.012 Patient blood pressure in the ER Was 159/86 and heart rate was 62 EKG done in the ER showed sinus bradycardia, frequent PVCs, no ST segment elevation or depression seen, no T-wave inversions seen. Patient admitted to internal medicine service REVIEW OF SYSTEMS: CONSTITUTIONAL: No fever, no malaise, no fatigue. HEENT: No recent visual problems or hearing problems. Denied any sore throat. CARDIOVASCULAR: No chest pain, orthopnea, PND, no palpitations, no syncope. PULMONARY: No shortness of breath, no cough, no hemoptysis. GASTROINTESTINAL: No diarrhea, no nausea, no vomiting, no abdominal pain. NEUROLOGICAL: No headaches, no weakness, no numbness. HEMATOLOGICAL: Denies any bleeding or petechiae. GENITOURINARY: Denies any burning micturition, frequency, or urgency. MUSCULOSKELETAL/RHEUMATOLOGICAL: Denies any joint pain, swelling, or any muscle pain. ENDOCRINE: Denies any polyuria or polydipsia. The rest of the 14-point review of systems is negative. PHYSICAL EXAMINATION: GENERAL: The patient is alert and oriented x3, not in any acute distress. Well developed, well nourished. HEENT: Pupils are round and equally reacting to light. EOMI. No scleral icterus. No conjunctival pallor. Normocephalic, atraumatic. No pharyngeal erythema. No thyromegaly. CARDIOVASCULAR: S1 and S2 present. No murmurs, rubs, or gallops. PULMONARY: Chest is clear to auscultation, no wheezing or crackles. ABDOMEN: Soft, nontender, nondistended, normoactive bowel sounds. No palpable organomegaly. MUSCULOSKELETAL: No joint swelling or deformity. EXTREMITIES: No cyanosis, clubbing, or pedal edema. NEUROLOGICAL: Gross neurological examination did not reveal any focal deficits. SKIN: No rashes. Assessment and plan Lightheadedness Sinus bradycardia Frequent PVCs History of coronary artery disease Hypertension Monitor vital signs Monitor CBC Monitor CMP Continue telemetry monitoring Trend troponin ordered 2D echo Ordered D-dimer Hold AV teodora blocking agents for now Continue IV fluids Resume home meds Consult cardiology Labs and medication were reviewed.. Continue same treatment. Continue with symptomatic treatment. Resume home medication. Monitor labs and vitals. DVT and GI prophylaxis. Further recommendations as per clinical course of the patient Dictation was produced using [employer] dictation software. please excuse any grammatical, word or spelling errors. Past Medical History Past Medical History: Chest Pain / Angina, Hyperlipidemia, Hypertension, Myocardial Infarction ([place]), Osteoarthritis (OA), Prostate Disorder Additional Past Medical History / Comment(s): Generalized osteoarthritis, benign prostatic hypertrophy. had a postitve stress test 3 weeks ago Last Myocardial Infarction Date:: 2019 History of Any Multi-Drug Resistant Organisms: None Reported Past Surgical History: Heart Catheterization With Stent Additional Past Surgical History / Comment(s): Heart cath this admission. Past Anesthesia/Blood Transfusion Reactions: No Reported Reaction Additional Past Anesthesia/Blood Transfusion Reaction / Comment(s): Never had transfusion Date of Last Stent Placement:: 05/24/2019 Past Psychological History: No Psychological Hx Reported Smoking Status: Current every day smoker Past Alcohol Use History: None Reported Past Drug Use History: None Reported - Past Family History Mother Additional Family Medical History / Comment(s): Mother at age 86 from outside numbers dementia. Father Additional Family Medical History / Comment(s): Father at age 71 from old age. Sister(s) Additional Family Medical History / Comment(s): Patient has one sister that at age 60 from pancreatic cancer. Brother(s) Additional Family Medical History / Comment(s): Patient had 1 brother that under the age of 1. Patient has 2 daughters with no major medical problems. Medications and Allergies Home Medications Medication Instructions Recorded Confirmed Type Tamsulosin HCl [Flomax] 0.8 mg PO HS 05/24/19 03/21/23 History Aspirin 81 mg PO DAILY chew 05/25/19 03/21/23 Rx Atorvastatin [Lipitor] 80 mg PO HS #30 tab 05/25/19 03/21/23 Rx Metoprolol Tartrate [Lopressor] 25 mg PO DAILY #30 tab 05/25/19 03/21/23 Rx [place]-3 Fatty Acids/Fish Oil 1 cap PO DAILY 04/19/22 03/21/23 History [[place]-3 Fish Oil 1,200 mg Sfgl] lisinopriL [Zestril] 10 mg PO HS 04/19/22 03/21/23 History Cholecalciferol [Vitamin D3 (125 125 mcg PO DAILY 03/21/23 03/21/23 History Mcg = 5000 Iu)] Clopidogrel [Plavix] 75 mg PO DAILY 03/21/23 03/21/23 History Lactulose 10 gm PO DAILY 03/21/23 03/21/23 History Multivit-Mins/Iron/Folic/Lycop 1 tab PO DAILY 03/21/23 03/21/23 History [Centrum Men's Tablet] Vitamin B-12(Unknown Dose) 1 tab PO DAILY 03/21/23 03/21/23 History traMADol HCL 50 mg PO TID PRN 03/21/23 03/21/23 History Allergies Allergy/AdvReac Type Severity Reaction Status Date / Time Iodinated Contrast Media Allergy Rash/Hives Verified 03/21/23 12:32 iodine Allergy Itching Verified 10/25/22 09:23 Physical Exam Vitals: Vital Signs Temp Pulse Resp BP Pulse Ox 03/21/23 12:00 59 L 21 166/89 96 03/21/23 11:00 63 20 159/135 95 03/21/23 10:18 98.0 F 62 18 159/86 95 Intake and Output 03/20/23 03/21/23 03/21/23 22:59 06:59 14:59 Other: Weight 88.904 kg Results CBC & Chem 7: 03/21/23 10:37 03/21/23 10:37 Labs: Abnormal Lab Results - Last 24 Hours (Table) 03/21/23 Range/Units 10:37 Chloride 109 H (98-107) mmol/L BUN 21 H (9-20) mg/dL Glucose 106 H (74-99) mg/dL
[2023-03-21] MEDS: ATORVASTATIN 80 MG TAB PO SCH (20:30)
[2023-03-21] MEDS: lisinopriL 10 MG TAB PO SCH (20:30)
[2023-03-21] MEDS: TAMSULOSIN 0.4 MG CAP.ER.24H PO SCH (20:31)
[2023-03-22] MEDS: DILTIAZEM DRIP BOLUS FROM BAG 1 MG SOLN IV ONE (02:31)
[2023-03-22] MEDS: DILTIAZEM 125 MG in SODIUM CHLORIDE 0.9% 100 ML IV SCH (02:32)
[2023-03-22] MEDS ORDERED: HEPARIN SODIUM 1,000 UN/ML (10ML VL) IV PRN (08:02)
[2023-03-22] MEDS: HEPARIN SODIUM 1,000 UN/ML (10ML VL) IV ONE (08:12)
[2023-03-22 08:34] LABS: Basophils # (A) 0.1 k/uL (0-0.2); Basophils % (A) 1 %; Eosinophils # (A) 0.1 k/uL (0-0.7); Eosinophils % (A) 2 %; HCT 50.2 % (39.0-53.0); HGB 16.9 gm/dL (13.0-17.5); Lymphocytes # (A) 1.8 k/uL (1.0-4.8); Lymphocytes % (A) 23 %; MCH 31.7 pg (25.0-35.0); MCHC 33.6 g/dL (31.0-37.0); MCV 94.2 fL (80.0-100.0); Mean Platelet Volume 7.4; Monocytes # (A) 0.6 k/uL (0-1.0); Monocytes % (A) 7 %; Neutrophils # (A) 5.3 k/uL (1.3-7.7); Neutrophils % (A) 66 %; Platelet Count 174 k/uL (150-450); RBC 5.33 m/uL (4.30-5.90); RDW 13.4 % (11.5-15.5)
[2023-03-22] MEDS ORDERED: NON FORMULARY DRUG (Omega-3 Fatty Acids/Fish Oil [Omega-3 Fish Oil 1,200 Mg Sfgl] 1 EACH C PO SCH (09:00)
[2023-03-22 09:01] LABS: ALT 15 U/L (4-49); AST 24 U/L (17-59); African American GFR (CKD) >90 (>60 ml/min/1.73 sqM); Albumin 3.9 g/dL (3.5-5.0); Alkaline Phosphatase 84 U/L (38-126); Anion Gap 7 mmol/L; Blood Urea Nitrogen 16 mg/dL (9-20); Calcium 9.4 mg/dL (8.4-10.2); Carbon Dioxide 22 mmol/L (22-30); Chloride 110 mmol/L (98-107); Glucose 115 mg/dL (74-99); Non-African American GFR(CKD) 80 (>60 ml/min/1.73 sqM); Potassium 4.4 mmol/L (3.5-5.1); Sodium 139 mmol/L (137-145); Total Bilirubin 1.2 mg/dL (0.2-1.3)
--- NOTE | 2023-03-22 09:21 | NM ---
EXAMINATION TYPE: NM pul vent and perfuse DATE OF EXAM: 03/22/2023 CLINICAL INDICATION: Male, 83 years old with history of Rule out PE; Comparison: 03/21/2023. TECHNIQUE: Utilizing inhalation of 63.3 mCi Tc 99m DTPA aerosol and intravenous injection of 5.0 mCi of Tc 99m MAA, ventilation and perfusion images are acquired post injection in multiple projections. FINDINGS: Patchy radiotracer distribution is noted in the lungs. There is no evidence of mismatched defects. IMPRESSION: No evidence for pulmonary embolus.
[2023-03-22] MEDS: HEPARIN SOD,PORK IN 0.45% NACL 25,000 UNIT in 0.45% NACL 1 250ML.BAG IV SCH (09:42)
[2023-03-22] MEDS: MULTIVITAMINS, THERA 1 EACH TAB PO SCH (09:43)
[2023-03-22] MEDS: CLOPIDOGREL 75 MG TAB PO SCH (09:43)
[2023-03-22] MEDS: CHOLECALCIFEROL 125 MCG (5000 IU) TABLET PO SCH (09:43)
[2023-03-22] MEDS: ASPIRIN 81 MG PO SCH (09:43)
[2023-03-22] MEDS: LACTULOSE 20 GM/30 ML CUP PO SCH (09:43)
[2023-03-22] MEDS: METOPROLOL TARTRATE 50 MG TAB PO SCH (09:53)
[2023-03-22 10:00] LABS: INR 1.1 (<1.2); Partial Thromboplastin Time 43.6 sec (22.0-30.0); Prothrombin Time 11.5 sec (10.0-12.5)
--- NOTE | 2023-03-22 12:10 | P.CRDCN ---
History of Present Illness Consult date: 03/22/23 Reason for Consult (text): Lightheadedness and PVCs History of present illness: History of present illness: This is an 83-year-old male patient of Dr. Adams with past medical history of coronary artery disease with prior stenting of the LAD, intermediate disease involving the RCA and left circumflex, history of hypertension, dyslipidemia, carotid atherosclerosis, infrarenal abdominal aortic aneurysm, history of smoking. We have been asked to evaluate the patient for lightheadedness with PVCs. Appears that he was at her PCP office for an annual evaluation and his blood pressure was found to be low and there may have been also concerned about low heart rate. The physician reviewed the EKG and patient was sent over to [facility] emergency [place] for evaluation. Patient denies having any symptoms at this time no chest pain, no shortness of breath, no lightheadedness or dizziness, no palpitations. Patient is seen today in the emergency center waiting for bed on the cardiac stepdown unit. EKG sinus with PVCs and repeat EKG atrial fibrillation at 151 bpm. Telemetry atrial fibrillation 130s. Chest x-ray: No acute cardiopulmonary disease process. COPD changes. VQ scan no evidence of pulmonary embolus. CBC is unremarkable. INR 1.1. D-dimer 1.9. Sodium 103, potassium 4.4, chloride 110, CO2 22, BUN 16 creatinine 0.85. Blood sugar 115. Troponin negative x 3 draws. Liver function test are normal. Home cardiac medications: Aspirin 81 mg daily, atorvastatin 80 mg at bedtime, Plavix 75 mg daily, lisinopril 10 daily, Lopressor 25 mg daily. Review Of Systems: At the time of my exam: CONSTITUTIONAL: Denies fever or chills. HEENT: Denies blurred vision, vision changes, or eye pain. Denies hemoptysis CARDIOVASCULAR: Denies chest pain. Denies orthopnea. Denies PND. Denies palpitations RESPIRATORY: Denies shortness of breath. GASTROINTESTINAL: Denies abdominal pain. Denies nausea or vomiting. HEMATOLOGIC: Denies bleeding disorders. GENITOURINARY: Denies any blood in urine. SKIN: Denies pruitis. Denies rash. Physical examination: Gen: This is an 83-year-old male in no acute distress VS: reviewed HEENT: Head is atraumatic, normocephalic. Pupils equal, round. Sclerae is anicteric. NECK: Supple. No JVD. LUNGS: Clear to auscultation. No wheezes or rhonchi. No intercostal retractions. HEART: Tachycardia, irregular rate and rhythm. No murmur. ABDOMEN: Soft No tenderness. EXTREMITIES: No pedal edema. No calf tenderness. NEUROLOGICAL: Patient is awake, alert and oriented x3. Assessment: New onset A-fib with RVR Coronary artery disease with prior stenting of the LAD, intermediate disease involving the RCA and LCx Hypertension Dyslipidemia Carotid atherosclerosis Infrarenal abdominal aortic aneurysm History of smoking Plan: Resume patient's home cardiac medications Start patient on Lopressor 50 mg twice daily Start heparin drip Continue Cardizem drip at 10 mg/h Start patient on amiodarone 400 mg twice daily Obtain 2-D echocardiogram and Doppler study to assess cardiac structure and function Further recommendations to follow based upon clinical course Thank you kindly for this consultation. Nurse practitioner note has been reviewed, I agree with documented findings and plan of care. Patient was seen and examined. Past Medical History Past Medical History: Chest Pain / Angina, Hyperlipidemia, Hypertension, Myocardial Infarction ([place]), Osteoarthritis (OA), Prostate Disorder Additional Past Medical History / Comment(s): Generalized osteoarthritis, benign prostatic hypertrophy. had a postitve stress test 3 weeks ago Last Myocardial Infarction Date:: 2019 History of Any Multi-Drug Resistant Organisms: None Reported Past Surgical History: Heart Catheterization With Stent Additional Past Surgical History / Comment(s): Heart cath this admission. Past Anesthesia/Blood Transfusion Reactions: No Reported Reaction Additional Past Anesthesia/Blood Transfusion Reaction / Comment(s): Never had transfusion Date of Last Stent Placement:: 05/24/2019 Past Psychological History: No Psychological Hx Reported Smoking Status: Current every day smoker Past Alcohol Use History: None Reported Past Drug Use History: None Reported - Past Family History Mother Additional Family Medical History / Comment(s): Mother at age 86 from outside numbers dementia. Father Additional Family Medical History / Comment(s): Father at age 71 from old age. Sister(s) Additional Family Medical History / Comment(s): Patient has one sister that at age 60 from pancreatic cancer. Brother(s) Additional Family Medical History / Comment(s): Patient had 1 brother that under the age of 1. Patient has 2 daughters with no major medical problems. Medications and Allergies Home Medications Medication Instructions Recorded Confirmed Type Tamsulosin HCl [Flomax] 0.8 mg PO HS 05/24/19 03/21/23 History Aspirin 81 mg PO DAILY chew 05/25/19 03/21/23 Rx Atorvastatin [Lipitor] 80 mg PO HS #30 tab 05/25/19 03/21/23 Rx Metoprolol Tartrate [Lopressor] 25 mg PO DAILY #30 tab 05/25/19 03/21/23 Rx [place]-3 Fatty Acids/Fish Oil 1 cap PO DAILY 04/19/22 03/21/23 History [[place]-3 Fish Oil 1,200 mg Sfgl] lisinopriL [Zestril] 10 mg PO HS 04/19/22 03/21/23 History Cholecalciferol [Vitamin D3 (125 125 mcg PO DAILY 03/21/23 03/21/23 History Mcg = 5000 Iu)] Clopidogrel [Plavix] 75 mg PO DAILY 03/21/23 03/21/23 History Lactulose 10 gm PO DAILY 03/21/23 03/21/23 History Multivit-Mins/Iron/Folic/Lycop 1 tab PO DAILY 03/21/23 03/21/23 History [Centrum Men's Tablet] Vitamin B-12(Unknown Dose) 1 tab PO DAILY 03/21/23 03/21/23 History traMADol HCL 50 mg PO TID PRN 03/21/23 03/21/23 History Allergies Allergy/AdvReac Type Severity Reaction Status Date / Time Iodinated Contrast Media Allergy Rash/Hives Verified 03/21/23 12:32 iodine Allergy Itching Verified 10/25/22 09:23 Physical Exam Vitals: Vital Signs Temp Pulse Resp BP Pulse Ox 03/22/23 06:17 152 H 19 111/72 91 L 03/22/23 04:19 125 H 19 103/85 96 03/22/23 03:27 174 H 19 119/104 92 L 03/22/23 03:07 91 L 03/22/23 03:02 152 H 20 119/104 03/22/23 02:42 156 H 20 124/97 91 L 03/22/23 02:09 156 H 19 127/88 93 L 03/22/23 00:04 86 19 147/92 94 L 03/21/23 22:05 67 21 190/98 95 03/21/23 20:00 97.6 F 70 18 177/94 95 03/21/23 19:00 75 16 131/94 95 03/21/23 16:00 89 19 156/90 03/21/23 15:00 156/90 03/21/23 14:00 70 22 156/90 03/21/23 12:30 152/84 03/21/23 12:00 59 L 21 166/89 96 03/21/23 11:00 63 20 159/135 95 03/21/23 10:18 98.0 F 62 18 159/86 95 Results 03/22/23 07:43 03/22/23 07:43 Cardiac Enzymes 03/21/23 03/21/23 03/21/23 Range/Units 10:37 10:37 15:06 AST 25 (17-59) U/L Troponin I 0.012 <0.012 (0.000-0.034) ng/mL 03/21/23 Range/Units 18:37 AST (17-59) U/L Troponin I 0.013 (0.000-0.034) ng/mL Coagulation 03/21/23 Range/Units 10:37 PT 11.2 (10.0-12.5) sec CBC 03/21/23 Range/Units 10:37 WBC 7.5 (3.8-10.6) k/uL RBC 5.39 (4.30-5.90) m/uL Hgb 16.7 (13.0-17.5) gm/dL Hct 50.7 (39.0-53.0) % Plt Count 161 (150-450) k/uL Comprehensive Metabolic Panel 03/21/23 Range/Units 10:37 Sodium 138 (137-145) mmol/L Potassium 4.4 (3.5-5.1) mmol/L Chloride 109 H (98-107) mmol/L Carbon Dioxide 23 (22-30) mmol/L BUN 21 H (9-20) mg/dL Creatinine 0.88 (0.66-1.25) mg/dL Glucose 106 H (74-99) mg/dL Calcium 9.2 (8.4-10.2) mg/dL AST 25 (17-59) U/L ALT 14 (4-49) U/L Alkaline Phosphatase 74 (38-126) U/L Total Protein 6.9 (6.3-8.2) g/dL Albumin 3.9 (3.5-5.0) g/dL Current Medications Generic Name Dose Route Start Last Admin Trade Name Jayce PRN Reason Stop Dose Admin Acetaminophen 650 mg 03/21/23 13:43 Acetaminophen Tab 325 Mg Tab PO Q6HR PRN Mild Pain or Fever > 100.5 Aspirin 81 mg 03/22/23 09:00 Aspirin 81 Mg PO DAILY [facility] Atorvastatin Calcium 80 mg 03/21/23 21:00 03/21/23 20:30 Atorvastatin 80 Mg Tab PO 80 mg HS [facility] Administration Cholecalciferol 125 mcg 03/22/23 09:00 Cholecalciferol 125 Mcg (5000 Iu) Tablet PO DAILY [facility] Clopidogrel Bisulfate 75 mg 03/22/23 09:00 Clopidogrel 75 Mg Tab PO DAILY [facility] Diltiazem HCl 125 mg/ Sodium 125 mls @ 10 mls/hr 03/22/23 02:30 03/22/23 02:32 Chloride IV 10 mg/hr .[id number] [facility] 10 mls/hr Administration 10 MG/HR Lactulose 10 gm 03/22/23 09:00 Lactulose 20 Gm/30 Ml Cup PO DAILY [facility] Lisinopril 10 mg 03/21/23 21:00 03/21/23 20:30 Lisinopril 10 Mg Tab PO 10 mg HS [facility] Administration Morphine Sulfate 4 mg 03/21/23 13:43 Morphine Sulfate 4 Mg/Ml Syringe IV Q4HR PRN Severe Pain (Scale 7 to 10) Multivitamins 1 each 03/22/23 09:00 Multivitamins, Thera 1 Each Tab PO DAILY [facility] Naloxone HCl 0.2 mg 03/21/23 13:43 Naloxone 0.4 Mg/Ml 1 Ml Vial IV Q2M PRN Opioid Reversal Tamsulosin HCl 0.8 mg 03/21/23 21:00 03/21/23 20:31 Tamsulosin 0.4 Mg Cap.Er.24h PO 0.8 mg HS [facility] Administration Tramadol HCl 50 mg 03/21/23 14:03 Tramadol 50 Mg Tab PO TID PRN Pain 03/21/23 10:37 03/21/23 10:37
--- NOTE | 2023-03-22 12:14 | P.PN ---
Subjective Progress Note Date: 03/22/23 patient 83-year-old gentleman with past medically significant for hyperlipidemia, coronary artery disease s/p multiple stent placement, hypertension presented to the ER for lightheadedness. Patient was sent into the ER from PCPs office as patient was found to have low blood pressure there. Patient stated that for the last few weeks he has been noticing that he was lightheaded at times. Denies any chest pain or shortness of breath. There was no complaint of palpitation. Denies any lethargy or weakness. There was no complaint of fever or chills. Patient went to his PCPs office for regular chec kup and daily was found to have low heart rate and blood pressure, was told to come to the ER. Initial lab work done in the ER showed WBC 7.5, hemoglobin 16.7, platelet count 167, sodium 138, potassium 4.4, BUN 21, creatinine 0.88, glucose 106, bilirubin 0.9, AST 25, ALT 14, troponin 0.012 Patient blood pressure in the ER Was 159/86 and heart rate was 62 EKG done in the ER showed sinus bradycardia, frequent PVCs, no ST segment elevation or depression seen, no T-wave inversions seen. Patient admitted to internal medicine service 03/22. Patient seen examined. Patient went into A-fib with RVR overnight, currently on Cardizem and heparin drip. Denies any lightheadedness or dizziness. Denies any chest pain. REVIEW OF SYSTEMS: CONSTITUTIONAL: No fever, no malaise,. CARDIOVASCULAR: No chest pain, no palpitations, no syncope. PULMONARY: No shortness of breath, no cough, GASTROINTESTINAL: No diarrhea, no nausea, no vomiting, no abdominal pain. NEUROLOGICAL: No headaches, no weakness, PHYSICAL EXAMINATION: GENERAL: The patient is alert and oriented x3, not in any acute distress. Well developed, well nourished. HEENT: Pupils are round and equally reacting to light. EOMI. No scleral icterus. No conjunctival pallor. Normocephalic, atraumatic. No pharyngeal erythema. No thyromegaly. CARDIOVASCULAR: S1 and S2 present. No murmurs, rubs, or gallops. Irregular rate and rhythm PULMONARY: Chest is clear to auscultation, no wheezing or crackles. ABDOMEN: Soft, nontender, nondistended, normoactive bowel sounds. No palpable organomegaly. MUSCULOSKELETAL: No joint swelling or deformity. EXTREMITIES: No cyanosis, clubbing, or pedal edema. NEUROLOGICAL: Gross neurological examination did not reveal any focal deficits. SKIN: No rashes. Assessment and plan A-fib with RVR Lightheadedness Sinus bradycardia Frequent PVCs History of coronary artery disease Hypertension Monitor vital signs Monitor CBC Monitor CMP Continue telemetry monitoring Trend troponin ordered 2D echo Continue Cardizem drip Continue pharmacy dose heparin Started on Lopressor 50 mg twice a day and amiodarone Continue aspirin, Plavix, Lipitor Cardiology following Labs and medication were reviewed.. Continue same treatment. Continue with symptomatic treatment. Resume home medication. Monitor labs and vitals. DVT and GI prophylaxis. Further recommendations as per clinical course of the teodora ent Dictation was produced using [employer] dictation software. please excuse any grammatical, word or spelling errors. Objective - Vital Signs Vital signs: Vital Signs Temp 97.6 F 03/21/23 20:00 Pulse 124 H 03/22/23 08:42 Resp 18 03/22/23 08:42 BP 128/74 03/22/23 08:42 Pulse Ox 93 L 03/22/23 08:42 FiO2 Intake & Output 03/21/23 03/22/23 03/22/23 18:59 06:59 18:59 Weight 88.904 kg - Labs CBC & Chem 7: 03/22/23 07:43 03/22/23 07:43 Labs: Abnormal Lab Results - Last 24 Hours (Table) 03/21/23 03/21/23 03/22/23 Range/Units 10:37 10:37 07:43 APTT (22.0-30.0) sec D-Dimer 1.90 H (<0.60) mg/L FEU Chloride 109 H 110 H (98-107) mmol/L BUN 21 H (9-20) mg/dL Glucose 106 H 115 H (74-99) mg/dL 03/22/23 Range/Units 09:32 APTT 43.6 H (22.0-30.0) sec D-Dimer (<0.60) mg/L FEU Chloride (98-107) mmol/L BUN (9-20) mg/dL Glucose (74-99) mg/dL
[2023-03-22] MEDS: AMIODARONE 200 MG TAB PO SCH (12:26)
--- NOTE | 2023-03-22 14:24 | CA ---
Transthoracic Echo Report Name: Cristóbal Valdovinos Age: 83 Gender: M : 1940 Exam Date: 03/22/2023 10:18 Exam Location: [place] [facility] Ht (in): 70 Wt (lb): 196 Ordering Physician: Randolph Gomez MD Attending/Referring Phys: Wagon Washer Laith Smith RDCS Procedure CPT: Indications: Lightheadedness, hypotension Cardiac Hx: Technical Quality: Fair Contrast 1: Total Dose (mL): Contrast 2: Total Dose (mL): MEASUREMENTS (Male / Female) Normal Values 2D ECHO LV Diastolic Diameter PLAX 4.5 cm 4.2 - 5.9 / 3.9 - 5.3 cm LV Systolic Diameter PLAX 3.8 cm IVS Diastolic Thickness 1.3 cm 0.6 - 1.0 / 0.6 - 0.9 cm LVPW Diastolic Thickness 0.9 cm 0.6 - 1.0 / 0.6 - 0.9 cm LV Relative Wall Thickness 0.5 Aortic Root Diameter 3.6 cm LA Systolic Diameter LX 4.2 cm 3.0 - 4.0 / 2.7 - 3.8 cm DOPPLER AV Peak Velocity 137.9 cm/s AV Peak Gradient 7.6 mmHg AV Mean Velocity 90.5 cm/s AV Mean Gradient 3.8 mmHg AV Velocity Time Integral 23.8 cm LVOT Peak Velocity 64.3 cm/s LVOT Peak Gradient 1.7 mmHg LVOT Velocity Time Integral 14.0 cm Mitral E Point Velocity 85.7 cm/s Mitral A Point Velocity 51.3 cm/s Mitral E to A Ratio 1.7 MV Deceleration Time 165.3 ms PV Peak Velocity 85.1 cm/s PV Peak Gradient 2.9 mmHg FINDINGS Left Ventricle Mildly increased septal wall thickness. Left ventricular ejection fraction is estimated at 35-40 %. Right Ventricle Right ventricle not well visualized. Right Atrium Right atrium not well visualized. Left Atrium Mildly increased left atrial diameter. Mitral Valve Trace mitral regurgitation. Aortic Valve Trileaflet aortic valve. Tricuspid Valve Trace tricuspid regurgitation. Pulmonic Valve Pulmonic valve not well visualized. Pericardium Normal pericardium. Aorta Normal size aortic root and proximal ascending aorta. CONCLUSIONS Mildly increased left ventricular wall thickness Left ventricular ejection fraction 35-40% Trace mitral regurgitation Trace tricuspid regurgitation Previewed by: Dr. Lucio Lau DO (Electronically Signed) Final Date: 22 March 2023 14:23
[2023-03-23 01:20] VITALS: RESP 16
[2023-03-23 08:32] LABS: Basophils % (A) 0 %; Eosinophils # (A) 0.3 k/uL (0-0.7); Eosinophils % (A) 3 %; HCT 44.6 % (39.0-53.0); HGB 14.9 gm/dL (13.0-17.5); Lymphocytes # (A) 1.8 k/uL (1.0-4.8); Lymphocytes % (A) 22 %; MCH 31.1 pg (25.0-35.0); MCHC 33.3 g/dL (31.0-37.0); MCV 93.2 fL (80.0-100.0); Monocytes # (A) 0.7 k/uL (0-1.0); Monocytes % (A) 8 %; Neutrophils # (A) 5.2 k/uL (1.3-7.7); Neutrophils % (A) 65 %; Platelet Count 139 k/uL (150-450); RBC 4.79 m/uL (4.30-5.90); WBC 8.1 k/uL (3.8-10.6)
[2023-03-23 08:36] LABS: INR 1.1 (<1.2); Prothrombin Time 11.8 sec (10.0-12.5)
[2023-03-23 11:44] VITALS: TEMP 97.5
--- NOTE | 2023-03-23 12:18 | P.DS ---
Providers Date of admission: 03/21/23 13:21 Expected date of discharge: 03/23/23 Attending physician: Minesh Diggs MD Consults: 03/21/23 13:43 Consult Physician Routine Consulting Provider: Steve Adams Consult Reason/Comments: lightheaded, xavier w pvcs Do you want consulting provider notified?: Yes Primary care physician: Jamil Nieves Hospital Course: Discharge diagnoses; A-fib with RVR Cardiomyopathy Lightheadedness Sinus bradycardia Frequent PVCs History of coronary artery disease Hypertension Hospital course; patient 83-year-old gentleman with past medically significant for hyperlipidemia, coronary artery disease s/p multiple stent placement, hypertension presented to the ER for lightheadedness. Patient was sent into the ER from PCPs office as patient was found to have low blood pressure there. Patient stated that for the last few weeks he has been noticing that he was lightheaded at times. Denies any chest pain or shortness of breath. There was no complaint of palpitation. Denies any lethargy or weakness. There was no complaint of fever or chills. Patient went to his PCPs office for regular checkup and daily was found to have low heart rate and blood pressure, was told to come to the ER. Initial lab work done in the ER showed WBC 7.5, hemoglobin 16.7, platelet count 167, sodium 138, potassium 4.4, BUN 21, creatinine 0.88, glucose 106, bilirubin 0.9, AST 25, ALT 14, troponin 0.012 Patient blood pressure in the ER Was 159/86 and heart rate was 62 EKG done in the ER showed sinus bradycardia, frequent PVCs, no ST segment elevation or depression seen, no T-wave inversions seen. Patient admitted to internal medicine service 03/22. Patient seen examined. Patient went into A-fib with RVR overnight, currently on Cardizem and heparin drip. Denies any lightheadedness or dizziness. Denies any chest pain. 03/23. Patient seen and examined. VQ scan was negative for PE, 2D echo done showed mildly increased left ventricular wall thickness, LVEF of 35 to 40%, trace mitral regurg, trace tricuspid reg. Currently in sinus rhythm. Cardiology recommended starting patient on Eliquis, amiodarone, Lopressor. Plavix was discontinued by cardiology PHYSICAL EXAMINATION: GENERAL: The patient is alert and oriented x3, not in any acute distress. Well developed, well nourished. HEENT: Pupils are round and equally reacting to light. EOMI. No scleral icterus. No conjunctival pallor. Normocephalic, atraumatic. No pharyngeal erythema. No thyromegaly. CARDIOVASCULAR: S1 and S2 present. No murmurs, rubs, or gallops. PULMONARY: Chest is clear to auscultation, no wheezing or crackles. ABDOMEN: Soft, nontender, nondistended, normoactive bowel sounds. No palpable organomegaly. MUSCULOSKELETAL: No joint swelling or deformity. EXTREMITIES: No cyanosis, clubbing, or pedal edema. NEUROLOGICAL: Gross neurological examination did not reveal any focal deficits. SKIN: No rashes. Dictation was produced using [employer] dictation software. please excuse any grammatical, word or spelling errors. Patient Condition at Discharge: Stable Plan - Discharge Summary New Discharge Prescriptions: New Amiodarone [Cordarone] 400 mg PO BID #30 tab Apixaban [Eliquis] 5 mg PO BID #60 tab Metoprolol Tartrate [Lopressor] 50 mg PO BID #60 tab Continue Tamsulosin HCl [Flomax] 0.8 mg PO HS Aspirin 81 mg PO DAILY chew Atorvastatin [Lipitor] 80 mg PO HS #30 tab lisinopriL [Zestril] 10 mg PO HS [place]-3 Fatty Acids/Fish Oil [[place]-3 Fish Oil 1,200 mg Sfgl] 1 cap PO DAILY Cholecalciferol [Vitamin D3 (125 Mcg = 5000 Iu)] 125 mcg PO DAILY Multivit-Mins/Iron/Folic/Lycop [Centrum Men's Tablet] 1 tab PO DAILY traMADol HCL 50 mg PO TID PRN PRN Reason: Pain Lactulose 10 gm PO DAILY Vitamin B-12(Unknown Dose) 1 tab PO DAILY Discontinued Metoprolol Tartrate [Lopressor] 25 mg PO DAILY #30 tab Clopidogrel [Plavix] 75 mg PO DAILY Discharge Medication List Tamsulosin HCl [Flomax] 0.8 mg PO HS 05/24/19 [History] Aspirin 81 mg PO DAILY chew 05/25/19 [Rx] Atorvastatin [Lipitor] 80 mg PO HS #30 tab 05/25/19 [Rx] [place]-3 Fatty Acids/Fish Oil [[place]-3 Fish Oil 1,200 mg Sfgl] 1 cap PO DAILY 04/19/22 [History] lisinopriL [Zestril] 10 mg PO HS 04/19/22 [History] Cholecalciferol [Vitamin D3 (125 Mcg = 5000 Iu)] 125 mcg PO DAILY 03/21/23 [History] Lactulose 10 gm PO DAILY 03/21/23 [History] Multivit-Mins/Iron/Folic/Lycop [Centrum Men's Tablet] 1 tab PO DAILY 03/21/23 [History] Vitamin B-12(Unknown Dose) 1 tab PO DAILY 03/21/23 [History] traMADol HCL 50 mg PO TID PRN 03/21/23 [History] Amiodarone [Cordarone] 400 mg PO BID #30 tab 03/23/23 [Rx] Apixaban [Eliquis] 5 mg PO BID #60 tab 03/23/23 [Rx] Metoprolol Tartrate [Lopressor] 50 mg PO BID #60 tab 03/23/23 [Rx] Follow up Appointment(s)/Referral(s): Jamil Nieves MD [Primary Care Provider] - 1-2 days Jeremy Spencer MD [STAFF PHYSICIAN] - 1 Week Discharge Disposition: HOME SELF-CARE
[2023-03-23] MEDS: APIXABAN 5 MG TAB PO SCH (12:53)
--- NOTE | 2023-03-23 13:07 | P.PN ---
Subjective Progress Note Date: 03/23/23 Lightheadedness and PVCs History of present illness: History of present illness: This is an 83-year-old male patient of Dr. Adams with past medical history of coronary artery disease with prior stenting of the LAD, intermediate disease involving the RCA and left circumflex, history of hypertension, dyslipidemia, carotid atherosclerosis, infrarenal abdominal aortic aneurysm, history of smoking. We have been asked to evaluate the patient for lightheadedness with PVCs. Appears that he was at her PCP office for an annual evaluation and his blood pressure was found to be low and there may have been also concerned about low heart rate. The physician reviewed the EKG and patient was sent over to [facility] emergency [place] for evaluation. Patient denies having any symptoms at this time no chest pain, no shortness of breath, no lightheadedness or dizziness, no palpitations. Patient is seen today in the emergency center waiting for bed on the cardiac stepdown unit. EKG sinus with PVCs and repeat EKG atrial fibrillation at 151 bpm. Telemetry atrial fibrillation 130s. Chest x-ray: No acute cardiopulmonary disease process. COPD changes. VQ scan no evidence of pulmonary embolus. CBC is unremarkable. INR 1.1. D-dimer 1.9. Sodium 103, potassium 4.4, chloride 110, CO2 22, BUN 16 creatinine 0.85. Blood sugar 115. Troponin negative x 3 draws. Liver function test are normal. Home cardiac medications: Aspirin 81 mg daily, atorvastatin 80 mg at bedtime, Plavix 75 mg daily, lisinopril 10 daily, Lopressor 25 mg daily. 03/23 Echocardiogram reveals EF of 35%, trace mitral regurgitation, trace tricuspid regurgitation. Heart rate is, blood pressure 105/60, pulse ox 95% on room air. Repeat blood work reveals hemoglobin of 14.9. Patient is off Cardizem drip. He continues on heparin drip. Physical examination: Gen: This is an 83-year-old male in no acute distress VS: reviewed HEENT: Head is atraumatic, normocephalic. Pupils equal, round. Sclerae is anicteric. NECK: Supple. No JVD. LUNGS: Clear to auscultation. No wheezes or rhonchi. No intercostal retract ions. HEART: Tachycardia, irregular rate and rhythm. No murmur. ABDOMEN: Soft No tenderness. EXTREMITIES: No pedal edema. No calf tenderness. NEUROLOGICAL: Patient is awake, alert and oriented x3. Assessment: New onset A-fib with RVR Coronary artery disease with prior stenting of the LAD, intermediate disease involving the RCA and LCx Hypertension Dyslipidemia Carotid atherosclerosis Infrarenal abdominal aortic aneurysm History of smoking Plan: Continue patient's home cardiac medications Continue patient on Lopressor 50 mg twice daily Discontinue heparin drip and start patient on Eliquis 5 mg twice daily Continue patient on amiodarone 400 mg twice daily for 3 days, then 200mg bid Patient is cleared for discharge from cardiology May follow-up with Dr. Adams in 1 to 2 weeks. Nurse practitioner note has been reviewed, I agree with documented findings and plan of care. Patient was seen and examined. Objective - Vital Signs Vital signs: Vital Signs Temp 98 F 03/23/23 04:30 Pulse 62 03/23/23 04:30 Resp 16 03/23/23 04:30 BP 98/64 03/23/23 04:30 Pulse Ox 96 03/23/23 04:30 FiO2 Intake & Output 03/22/23 03/23/23 03/23/23 18:59 06:59 18:59 Intake Total 168.176 360 202.324 Balance 168.176 360 202.324 Weight 88.904 kg Intake: Intake, IV Titration 168.176 202.324 Amount Diltiazem 125 mg In 120.5 Sodium Chloride 0.9% 100 ml @ 10 MG/HR 10 mls/hr IV .[id number] [facility] Rx#: [id number] Heparin Sod,Pork in 0.45% 47.676 202.324 NaCl 25,000 unit In 0.45 % NaCl 1 250ml.bag @ 11. 25 UNITS/KG/HR 10.002 mls /hr IV .Q24H [facility] Rx#: [id number] Oral 360 Other: # Voids 1 - Labs CBC & Chem 7: 03/23/23 08:10 03/22/23 07:43 Labs: Abnormal Lab Results - Last 24 Hours (Table) 03/22/23 03/22/23 03/22/23 Range/Units 09:32 13:53 19:27 Plt Count (150-450) k/uL APTT 43.6 H 35.5 H 47.1 H (22.0-30.0) sec 03/23/23 03/23/23 Range/Units 08:10 08:10 Plt Count 139 L (150-450) k/uL APTT 53.8 H (22.0-30.0) sec
[2023-03-23 15:20] VITALS: BP 119/72; PULSE 57
== END 2023-03-23 15:04 | disposition home or self-care (01) | DRG 310 ==
LOC: EC 10:09 → 3SCARD 13:21
PROVIDERS: ADMIT Internal Medicine; ATTEND Internal Medicine
DX: I48.91 Unspecified atrial fibrillation (principal); I42.9 Cardiomyopathy, unspecified; Z95.5 Presence of coronary angioplasty implant and graft; I10 Essential (primary) hypertension; E78.5 Hyperlipidemia, unspecified; I65.29 Occlusion and stenosis of unspecified carotid artery; I71.43 Infrarenal abdominal aortic aneurysm, without rupture; R00.1 Bradycardia, unspecified; F17.210 Nicotine dependence, cigarettes, uncomplicated; I08.1 Rheumatic disorders of both mitral and tricuspid valves; M19.90 Unspecified osteoarthritis, unspecified site; I25.2 Old myocardial infarction; N40.0 Benign prostatic hyperplasia without lower urinary tract symptoms; Z79.02 Long term (current) use of antithrombotics/antiplatelets; Z79.82 Long term (current) use of aspirin; Z79.899 Other long term (current) drug therapy
CPT/HCPCS: 36415; 71046; 78582; 80053; 84484; 85025; 85379; 85610; 85730; 93005; 93306; 96361; 96365; 96366; 96368; 96375; 99285

== ENCOUNTER 2023-04-22 07:10 | Day surgery (SDC) | payer MEDICARE ==
[~2023-04-22 07:10] MED LIST changes: -ASPIRIN 325 MG TAB PO STA; -ATORVASTATIN 80 MG TAB PO STA; +HEPARIN SODIUM,PORCINE (1 ML) 2,500 UNIT in SODIUM CHLORIDE 0.9% 250 ML IRRIGATION PRN; -HEPARIN SODIUM,PORCINE 2,500 UNIT in SODIUM CHLORIDE 0.9% 250 ML IRRIGATION PRN; -SODIUM CHLORIDE 0.9% 1,000 ML in EMPTY BAG 1 BAG IV SCH
[2023-04-22] MEDS: SODIUM CHLORIDE 0.9% 1,000 ML IV ONE (07:36)
[2023-04-22] MEDS: ASPIRIN 325 MG TAB PO ONE (07:44)
[2023-04-22] MEDS: methylPREDNISolone SOD SUCCI 125 MG/2 ML VIAL ONE (07:44)
[2023-04-22] MEDS: diphenhydrAMINE 50 MG/ML 1 ML VIAL ONE (07:44)
[2023-04-22] MEDS: FAMOTIDINE 20 MG/2 ML VIAL ONE (07:44)
[2023-04-22] MEDS: SODIUM CHLORIDE 0.9% 1,000 ML in EMPTY BAG 1 BAG IV SCH (07:45)
[2023-04-22 07:51] LABS: Basophils # (A) 0.1 k/uL (0-0.2); Basophils % (A) 1 %; Eosinophils # (A) 0.3 k/uL (0-0.7); Eosinophils % (A) 3 %; HCT 49.3 % (39.0-53.0); HGB 16.2 gm/dL (13.0-17.5); Lymphocytes % (A) 22 %; MCH 31.1 pg (25.0-35.0); MCHC 32.8 g/dL (31.0-37.0); MCV 94.9 fL (80.0-100.0); Mean Platelet Volume 7.1; Monocytes # (A) 0.6 k/uL (0-1.0); Monocytes % (A) 6 %; Neutrophils # (A) 6.2 k/uL (1.3-7.7); Neutrophils % (A) 67 %; Platelet Count 177 k/uL (150-450); RBC 5.19 m/uL (4.30-5.90); RDW 14.3 % (11.5-15.5); WBC 9.3 k/uL (3.8-10.6)
[2023-04-22 07:58] VITALS: TEMP 97.5
[2023-04-22 08:09] LABS: African American GFR (CKD) 69 (>60 ml/min/1.73 sqM); Anion Gap 9 mmol/L; Blood Urea Nitrogen 27 mg/dL (9-20); Calcium 9.5 mg/dL (8.4-10.2); Carbon Dioxide 22 mmol/L (22-30); Chloride 106 mmol/L (98-107); Glucose 109 mg/dL (74-99); Non-African American GFR(CKD) 60 (>60 ml/min/1.73 sqM); Potassium 4.4 mmol/L (3.5-5.1); Sodium 137 mmol/L (137-145)
[2023-04-22] MEDS ORDERED: HEPARIN SODIUM 1,000 UN/ML (10ML VL) ONE (09:28)
[2023-04-22] MEDS ORDERED: fentaNYL (PF) 50 MCG/ML 2 ML AMP ONE (09:29)
[2023-04-22] MEDS ORDERED: VERAPAMIL 2.5 MG/ML 2 ML AMP ONE (09:29)
[2023-04-22] MEDS ORDERED: LIDOCAINE 1% INJ 10MG/ML (20 ML MDV) ONE (09:29)
[2023-04-22] MEDS: LIDOCAINE 1% INJ 10MG/ML (20 ML MDV) SQ ONE (10:00)
[2023-04-22] MEDS: VERAPAMIL SYRINGE (5 MG/10 ML) INTRAARTER ONE (10:02)
[2023-04-22] MEDS: MIDAZOLAM 2 MG/2 ML VIAL IVP ONE ×2 (10:02→10:04)
[2023-04-22] MEDS: HEPARIN SODIUM 1,000 UN/ML (10ML VL) IVP ONE (10:03)
[2023-04-22] MEDS ORDERED: FLUMAZENIL 0.1 MG/ML 5 ML VIAL IVP ONE (10:11)
[2023-04-22] MEDS ORDERED: RX INFO: IV CONTRAST WAS GIVEN 1 EACH MISC MISCELLANE PRN (10:19)
--- NOTE | 2023-04-22 10:24 | P.PCN ---
Date of Procedure: 04/22/23 Operative Findings: CARDIAC CATHETERIZATION PERFORMING PHYSICIAN: Steve Adams MD, RPVI PROCEDURE PERFORMED: 1. Selective right and left coronary angiogram INDICATION: Cardiomyopathy COMPLICATION: None APPROACH: Right radial artery LEVEL OF SEDATION: Moderate with a sedation length of 13 minutes PROCEDURE DESCRIPTION: After obtaining an informed consent, the patient was brought to cardiac finishing lab technician. Local anesthesia was performed using lidocaine subcutaneously. The right radial artery was cannulated using Seldinger technique, the guidewire passed easily, following that we advanced a 5-Moldovan sheath dilator assembly, the wire and dilator were removed and sheath was flushed. Following that, 2 mg of verapamil along with 5000 unit heparin were given. Selective right and left coronary angiogram using a 6-Moldovan JR4 and JL 3.5 catheters. The procedure was completed there was no complication. SELECTIVE CORONARY ANGIOGRAM: The right coronary artery: Large-caliber vessel and a dominant vessel. The proximal RCA and mid RCA and distal RCA have intermediate lesions appear to be in the range of 60% have not changed compared to before. Left main: Is angiographically normal with bifurcates into an LCx and LAD The left circumflex: Large-caliber vessel with intermediate lesion involving the proximal portion appears to be also unchanged compared to before The left anterior descending artery: Large-caliber vessel. The proximal LAD is angiographically normal and gives rise into a large diagonal branch which seems to be normal. The mid LAD is stented and the stent is patent. The LAD distally appears to be angiographically normal. CONCLUSION: 1. 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 Intermediate disease involving the left circumflex also has not changed compared to before POSTPROCEDURE MANAGEMENT: Consider medical treatment
[2023-04-22] MEDS ORDERED: SODIUM CHLORIDE 0.9% 1,000 ML IV SCH (10:30)
[2023-04-22] MEDS: SODIUM CHLORIDE 0.9% 500 ML 500 ML IV ONE (12:15)
[2023-04-22 13:46] VITALS: BP 134/66
[2023-04-22 14:55] VITALS: PULSE 53; RESP 16
== END 2023-04-22 14:27 | disposition home or self-care (01) ==
LOC: CATHCVL 07:10
PROVIDERS: ATTEND Internal Medicine Interventional Cardiology
DX: I25.10 Atherosclerotic heart disease of native coronary artery without angina pectoris (principal); I10 Essential (primary) hypertension; E78.5 Hyperlipidemia, unspecified; F17.210 Nicotine dependence, cigarettes, uncomplicated; Z79.82 Long term (current) use of aspirin; I71.43 Infrarenal abdominal aortic aneurysm, without rupture; Z79.899 Other long term (current) drug therapy; I48.19 Other persistent atrial fibrillation; Z79.01 Long term (current) use of anticoagulants
CPT/HCPCS: 93454; 80048; 85025; C1769; C1894; J2250; J1200; J2930; J2001; J3490; J1644

== ENCOUNTER → 2023-06-13 | Outpatient (CLI) | payer MEDICARE ==
[2023-06-13 17:34] LABS: Basophils # (A) 0.06 X 10*3/uL (0.00-0.10); Basophils % (A) 0.8 %; Eosinophils # (A) 0.25 X 10*3/uL (0.04-0.35); Eosinophils % (A) 3.2 %; HCT 47.4 % (39.6-50.0); Lymphocytes % (A) 33.2 %; MCHC 31.6 g/dL (32.0-37.0); MCV 97.9 FL (80.0-97.0); Mean Platelet Volume 9.4 FL (9.5-12.2); Monocytes # (A) 0.67 X 10*3/uL (0.20-1.00); Monocytes % (A) 8.6 %; NRBC Per 100 WBC 0 X 10*3/uL (0.00-0.01); Neutrophils # (A) 4.22 X 10*3/uL (1.80-7.70); Neutrophils % (A) 53.9 %; Platelet Count 185 X 10*3/uL (140-440); RBC 4.84 X 10*6/uL (4.40-5.60); RDW 14.8 % (11.5-14.5); WBC 7.82 X 10*3/uL (4.50-10.00)
[2023-06-13 17:35] LABS: ALT 16 U/L (10-49); AST 17 U/L (14-35); Albumin 4.1 g/dL (3.8-4.9); Albumin/Globulin Ratio 1.78 Ratio (1.60-3.17); Alkaline Phosphatase 71 U/L (41-126); BUN/Creat Ratio 19.91 Ratio (12.00-20.00); Blood Urea Nitrogen 21.9 mg/dL (9.0-27.0); Calcium 9.3 mg/dL (8.7-10.3); Carbon Dioxide 22.9 mmol/L (21.6-31.8); Chloride 107 mmol/L (96-109); Globulin 2.3 g/dL (1.6-3.3); Glucose 122 mg/dL (70-110); Potassium 4.7 mmol/L (3.5-5.5); Sodium 140 mmol/L (135-145); Total Bilirubin 0.5 mg/dL (0.3-1.2); Total Protein 6.4 g/dL (6.2-8.2)
== END | disposition home or self-care (01) ==
LOC: LABWHC1 12:25
PROVIDERS: ATTEND Family Medicine
DX: I10 Essential (primary) hypertension (principal)
CPT/HCPCS: 36415; 80053; 85025

== ENCOUNTER → 2023-09-12 | Outpatient (CLI) | payer MEDICARE ==
--- NOTE | 2023-10-24 14:32 | XR ---
EXAMINATION TYPE: XR Hip Complete RT DATE OF EXAM: 10/24/2023 COMPARISON: None HISTORY: Pain TECHNIQUE: 2 view right hip FINDINGS: Femoral head articulates with the acetabulum. No acute fracture or dislocation evident. Follow up exams can be performed as clinically indicated IMPRESSION: 1. No acute osseous abnormality right hip. [facility], , 10/24/2023 2:30 PM
== END | disposition home or self-care (01) ==
LOC: RADXRMAIN 11:26
PROVIDERS: ATTEND Family Medicine
DX: M25.551 Pain in right hip (principal)
CPT/HCPCS: 73502

== ENCOUNTER → 2024-01-04 | Outpatient (CLI) | payer MEDICARE ==
[2024-01-04 15:56] LABS: Basophils # (A) 0.06 X 10*3/uL (0.00-0.10); Basophils % (A) 0.7 %; Eosinophils # (A) 0.12 X 10*3/uL (0.04-0.35); Eosinophils % (A) 1.4 %; HCT 49.6 % (39.6-50.0); HGB 16.1 g/dL (13.0-17.0); Lymphocytes # (A) 2.01 X 10*3/uL (0.90-5.00); Lymphocytes % (A) 22.8 %; MCH 31.3 pg (27.0-32.0); MCHC 32.5 g/dL (32.0-37.0); MCV 96.5 FL (80.0-97.0); Mean Platelet Volume 9.4 FL (9.5-12.2); Monocytes # (A) 0.62 X 10*3/uL (0.20-1.00); NRBC Per 100 WBC 0 X 10*3/uL (0.00-0.01); Neutrophils # (A) 5.99 X 10*3/uL (1.80-7.70); Platelet Count 191 X 10*3/uL (140-440); RBC 5.14 X 10*6/uL (4.40-5.60); RDW 14.6 % (11.5-14.5); WBC 8.81 X 10*3/uL (4.50-10.00)
[2024-01-04 16:33] LABS: ALT 15 U/L (10-49); AST 20 U/L (14-35); Albumin 4.1 g/dL (3.8-4.9); Albumin/Globulin Ratio 1.52 Ratio (1.60-3.17); Alkaline Phosphatase 95 U/L (41-126); BUN/Creat Ratio 19.64 Ratio (12.00-20.00); Blood Urea Nitrogen 21.6 mg/dL (9.0-27.0); Calcium 9.7 mg/dL (8.7-10.3); Carbon Dioxide 27.1 mmol/L (21.6-31.8); Chloride 106 mmol/L (96-109); Chol/HDL Ratio 2.97 Ratio; Globulin 2.7 g/dL (1.6-3.3); Glucose 111 mg/dL (70-110); LDL Cholesterol,Calculated 76.9 mg/dL (0.0-131.0); Potassium 5.2 mmol/L (3.5-5.5); Sodium 139 mmol/L (135-145); Total Bilirubin 0.6 mg/dL (0.3-1.2); Total Protein 6.8 g/dL (6.2-8.2); VLDL Calculation 12.66 mg/dL (5.00-40.00)
== END | disposition home or self-care (01) ==
LOC: LABWHC1 09:57
PROVIDERS: ATTEND Family Medicine
DX: I10 Essential (primary) hypertension (principal); I48.91 Unspecified atrial fibrillation; E55.9 Vitamin D deficiency, unspecified
CPT/HCPCS: 36415; 80053; 80061; 82306; 84443; 85025

== ENCOUNTER → 2024-02-28 | Outpatient (CLI) | payer MEDICARE ==
[2024-02-28 12:26] LABS: Appearance,Urine Clear (Clear); Bilirubin,Urine Negative (Negative); Blood,Urine Large (Negative); Budding Yeast,Urine Rare /hpf; Color,Urine Yellow; Glucose,Urine (UA) Negative (Negative); Hyaline Casts,Urine 1 /lpf (0-2); Ketones,Urine Negative (Negative); Leukocyte Esterase,Urine Negative (Negative); Mucus,Urine Rare /hpf; Nitrite,Urine Negative (Negative); PH, Urine 5.5 (5.0-8.0); Protein,Urine Negative (Negative); RBC,Urine >182 /hpf (0-5); Specific Gravity,Urine 1.025 (1.001-1.035); Urobilinogen,Urine <2.0 mg/dL (<2.0); WBC,Urine 2 /hpf (0-5)
[2024-02-28 15:02] LABS: Basophils # (A) 0.07 X 10*3/uL (0.00-0.10); Basophils % (A) 0.7 %; Eosinophils % (A) 2.1 %; HCT 46.8 % (39.6-50.0); HGB 14.9 g/dL (13.0-17.0); Lymphocytes # (A) 2.08 X 10*3/uL (0.90-5.00); Lymphocytes % (A) 21.5 %; MCH 30.6 pg (27.0-32.0); MCHC 31.8 g/dL (32.0-37.0); MCV 96.1 FL (80.0-97.0); Mean Platelet Volume 9.4 FL (9.5-12.2); Monocytes % (A) 8.3 %; NRBC Per 100 WBC 0 X 10*3/uL (0.00-0.01); Neutrophils # (A) 6.49 X 10*3/uL (1.80-7.70); Neutrophils % (A) 67.1 %; Platelet Count 196 X 10*3/uL (140-440); RBC 4.87 X 10*6/uL (4.40-5.60); WBC 9.67 X 10*3/uL (4.50-10.00)
[2024-02-28 15:17] LABS: ALT 13 U/L (10-49); AST 19 U/L (14-35); Albumin/Globulin Ratio 1.43 Ratio (1.60-3.17); Alkaline Phosphatase 83 U/L (41-126); BUN/Creat Ratio 17.18 Ratio (12.00-20.00); Blood Urea Nitrogen 18.9 mg/dL (9.0-27.0); Calcium 9.4 mg/dL (8.7-10.3); Carbon Dioxide 26.8 mmol/L (21.6-31.8); Chloride 103 mmol/L (96-109); Globulin 2.8 g/dL (1.6-3.3); Glucose 93 mg/dL (70-110); Potassium 4.5 mmol/L (3.5-5.5); Sodium 139 mmol/L (135-145); Total Bilirubin 0.4 mg/dL (0.3-1.2); Total Protein 6.8 g/dL (6.2-8.2)
== END | disposition home or self-care (01) ==
LOC: LABWHC1 10:48
PROVIDERS: ATTEND Family Medicine
DX: I10 Essential (primary) hypertension (principal); R31.9 Hematuria, unspecified
CPT/HCPCS: 36415; 80053; 81001; 85025

== ENCOUNTER 2024-02-29 15:52 | Emergency (ER) | payer MEDICARE ==
[2024-02-29 16:30] LABS: Appearance,Urine Bloody (Clear); Color,Urine Red; RBC,Urine >182 /hpf (0-5); WBC,Urine 8 /hpf (0-5)
--- NOTE | 2024-02-29 16:38 | ED ---
Male Urogenital HPI - General Chief complaint: Urogenital Stated complaint: blood in urine Time Seen by Provider: 02/29/24 16:37 Source: patient, family, RN notes reviewed Mode of arrival: ambulatory Limitations: no limitations - History of Present Illness Initial comments: 84-year-old male presented to the ER for evaluation of hematuria. Patient reports on 02-27-2024 he started to notice blood in his urine. He states he was seen by PCP, Dr. Nieves, on Tuesday and had blood work and urinalysis obtained. Patient states PCP also ordered an ultrasound but this has not been completed. He states yesterday and into today he has noticed a progressive worsening of the hematuria along with clots. He states his last episode of urination prior to arrival was more blood than urine which prompted his visit. He does take Eliquis. He denies any abdominal pain, flank pain, history of kidney stones, history of urinary retention, history of kidney issues. Patient does take tamsulosin for enlarged prostate. Patient is a smoker. Patient denies any fevers or chills. He does report mild lightheadedness but denies any chest pain, shortness of breath, peripheral edema. - Related Data Home Medications Medication Instructions Recorded Confirmed Tamsulosin HCl [Flomax] 0.8 mg PO HS 05/24/19 04/22/23 Michie-3 Fatty Acids/Fish Oil 1 cap PO DAILY 04/19/22 04/22/23 [Michie-3 Fish Oil 1,200 mg Sfgl] lisinopriL [Zestril] 10 mg PO HS 04/19/22 04/22/23 Cholecalciferol [Vitamin D3 (125 125 mcg PO DAILY 03/21/23 04/22/23 Mcg = 5000 Iu)] Lactulose 10 gm PO DAILY 03/21/23 04/22/23 Multivit-Mins/Iron/Folic/Lycop 1 tab PO DAILY 03/21/23 04/22/23 [Centrum Men's Tablet] Vitamin B-12(Unknown Dose) 1 tab PO DAILY 03/21/23 04/22/23 traMADol HCL 50 mg PO TID PRN 03/21/23 04/18/23 Previous Rx's Medication Instructions Recorded Aspirin 81 mg PO DAILY chew 05/25/19 Atorvastatin [Lipitor] 80 mg PO HS #30 tab 05/25/19 Amiodarone [Cordarone] 200 mg PO BID #72 tab 03/23/23 Apixaban [Eliquis] 5 mg PO BID #60 tab 03/23/23 Metoprolol Tartrate [Lopressor] 50 mg PO BID #60 tab 03/23/23 Allergies Allergy/AdvReac Type Severity Reaction Status Date / Time Iodinated Contrast Media Allergy Rash/Hives Verified 04/18/23 14:20 iodine Allergy Itching Verified 04/18/23 14:20 Review of Systems ROS Statement: Those systems with pertinent positive or pertinent negative responses have been documented in the HPI. ROS Other: All systems not noted in ROS Statement are negative. Past Medical History Past Medical History: Atrial Fibrillation, Hyperlipidemia, Hypertension, Myocardial Infarction ([place]), Osteoarthritis ([place]), Prostate Disorder Additional Past Medical History / Comment(s): Generalized osteoarthritis, benign prostatic hypertrophy. had a postitve stress test 3 weeks ago Last Myocardial Infarction Date:: 2019 History of Any Multi-Drug Resistant Organisms: None Reported Past Surgical History: Heart Catheterization With Stent Additional Past Surgical History / Comment(s): Heart cath this admission. Past Anesthesia/Blood Transfusion Reactions: No Reported Reaction Additional Past Anesthesia/Blood Transfusion Reaction / Comment(s): Never had transfusion Date of Last Stent Placement:: Past Psychological History: No Psychological Hx Reported Smoking Status: Current every day smoker - Past Family History Mother Additional Family Medical History / Comment(s): Mother at age 86 from outside numbers dementia. Father Additional Family Medical History / Comment(s): Father at age 71 from old age. Sister(s) Additional Family Medical History / Comment(s): Patient has one sister that at age 60 from pancreatic cancer. Brother(s) Additional Family Medical History / Comment(s): Patient had 1 brother that under the age of 1. Patient has 2 daughters with no major medical problems. General Exam - General Exam Comments Initial Comments: Visual Physical Exam Vital signs reviewed General: Well-appearing, nontoxic, no acute distress. Head: Normocephalic, atraumatic Eyes: PERRLA, EOMI ENT: Airway patent Chest: Nonlabored breathing Skin: No visual rash, normal skin tone Neuro: Alert and oriented 3 Musculoskeletal: No gross abnormalities Limitations: no limitations General appearance: alert, in no apparent distress Respiratory exam: Present: normal lung sounds bilaterally. Absent: respiratory distress, wheezes, rales, rhonchi, stridor Cardiovascular Exam: Present: regular rate, normal rhythm, normal heart sounds. Absent: systolic murmur, diastolic murmur, rubs, gallop, clicks GI/Abdominal exam: Present: soft, normal bowel sounds, other (suprapubic pressure). Absent: distended, tenderness, guarding, rebound, rigid Neurological exam: Present: alert, oriented X3, CN II-XII intact Skin exam: Present: warm, dry, intact, normal color. Absent: rash Course Vital Signs 02/29/24 02/29/24 16:05 19:28 Temperature 98.4 F 97.8 F Pulse Rate 80 71 Respiratory 20 16 Rate Blood Pressure 133/78 160/98 O2 Sat by Pulse 98 95 Oximetry Medical Decision Making - Medical Decision Making I performed the quick note portion of this chart. Electronically signed by Amalia Mayorga PA-C Was pt. sent in by a medical professional or institution ([facility], [facility], urgent care, hospital, or penitentiary...) When possible be specific @ -No Did you speak to anyone other than the patient for history (EMS, parent, family, police, friend...)? What history was obtained from this source @ -Patient's , at bedside, aiding in HPI and past medical history. Did you review nursing and triage notes (agree or disagree)? Why? @ -I reviewed and agree with nursing and triage notes Were old charts reviewed (outside hosp., previous admission, EMS record, old EKG, old radiological studies, urgent care reports/EKG's, penitentiary records)? Report findings @ -Yes, I reviewed his CBC from 02-28-2024 hemoglobin 14. Differential Diagnosis (chest pain, altered mental status, abdominal pain women, abdominal pain men, vaginal bleeding, weakness, fever, dyspnea, syncope, headache, dizziness, GI bleed, back pain, seizure, CVA, palpatations, mental health, musculoskeletal)? @ -UTI, malignancy, nephrolithiasis, renal failure... This list is not meant to be all-inclusive EKG interpreted by me (3pts min.). @ -None done X-rays interpreted by me (1pt min.). @ -None done CT interpreted by me (1pt min.). @ -CT abdomen pelvis without contrast no evidence of hydronephrosis or renal stones bilaterally. No source of hematuria distinctively identified. Enlarged prostate. 3.5 cm AAA. Colonic diverticulosis U/S interpreted by me (1pt. min.). @ -Ultrasound renals and bladder showing a left renal cyst. No source of hematuria identified. What testing was considered but not performed or refused? (CT, X-rays, U/S, labs)? Why? @ -None What meds were considered but not given or refused? Why? @ -None Did you discuss the management of the patient with other professionals (jeanette paris i.e. , PA, [facility], lab, RT, psych nurse, social media director, media relations coordinator, teacher, personnel officer, counter caser)? Give summary @ -No Was smoking cessation discussed for >3mins.? @ -I discussed smoking cessation for greater than 3 minutes. The risk of smoking were discussed with the patient including but not limited to risks of cancer, stroke, coronary artery disease and COPD. Also discussed with patient were multiple methods of quitting smoking. Lastly we discussed the financial cost of smoking. Was critical care preformed (if so, how long)? @ -No Were there social determinants of health that impacted care today? How? (Homelessness, low income, unemployed, alcoholism, drug addiction, transportation, low edu. Level, literacy, decrease access to med. care, [facility], rehab)? @ -No Was there de-escalation of care discussed even if they declined (Discuss DNR or withdrawal of care, Hospice)? DNR status @ -No What co-morbidities impacted this encounter? (DM, HTN, Smoking, COPD, CAD, Can cer, CVA, ARF, Chemo, Hep., AIDS, mental health diagnosis, sleep apnea, morbid obesity)? @ -History of atrial fibrillation on Eliquis Was patient admitted / discharged? Hospital course, mention meds given and route, prescriptions, significant lab abnormalities, going to OR and other pertinent info. @ -Discharge. 84-year-old male presented the ER for evaluation of hematuria. Patient originally seen as a quick note. Upon rooming and examination, vital signs within normal limits. Patient no signs of acute distress. Exam remarkable for suprapubic pressure with normal bowel sounds. No rebound or guarding. No CVA tenderness. Laboratory studies and imaging will be obtained, patient is agreeable. CBC remarkable for stable hemoglobin of 16.4. BUN 20 with creatinine 1.07 GFR is 63. Urinalysis hemorrhagic with greater than 182 RBCs and 8 WBCs. Urine sent for culture. Imaging completed in the ER including ultrasound renal/bladder and CT abdomen pelvis without contrast without source of hematuria. There is a left renal cyst noted. 3.5 cm AAA noted for which patient states he is following up with cardiology, Dr. Adams. As patient has stable vital signs and stable hemoglobin (increased from yesterday 02/28/24 hemoglobin 14) I believe he is stable for discharge at this time and outpatient follow-up. I did advise him to hold Eliquis for 24 to 48 hours. I instructed h im to follow-up with PCP and urology within the next 1 to 2 days for further evaluation. Strict return parameters discussed. Patient discharged in stable condition with follow-up to PCP and urology, referral given. Patient verbally expressed understanding and agreement with care plan. Case discussed with ED attending, Dr. Arias. Undiagnosed new problem with uncertain prognosis? @ -No Drug Therapy requiring intensive monitoring for toxicity (Heparin, Nitro, Insulin, Cardizem)? @ -No Were any procedures done? @ -No Diagnosis/symptom? @ -Hematuria/left renal cyst Acute, or Chronic, or Acute on Chronic? @ -Acute Uncomplicated (without systemic symptoms) or Complicated (systemic symptoms)? @ -Uncomplicated Side effects of treatment? @ -No Exacerbation, Progression, or Severe Exacerbation? @ -No Poses a threat to life or bodily function? How? (Chest pain, [place], [place], pneumonia, PE, COPD, DKA, ARF, appy, cholecystitis, CVA, Diverticulitis, Homicidal, Suicidal, threat to staff... and all critical care pts) @ -No - Lab Data Result diagrams: 02/29/24 16:27 02/29/24 16:27 Lab Results 02/29/24 02/29/24 02/29/24 Range/Units 16:13 16:27 16:27 WBC 8.5 (3.8-10.6) k/uL RBC 5.13 (4.30-5.90) m/uL Hgb 16.4 (13.0-17.5) gm/dL Hct 48.9 (39.0-53.0) % MCV 95.2 (80.0-100.0) fL MCH 31.9 (25.0-35.0) pg MCHC 33.6 (31.0-37.0) g/dL RDW 13.7 (11.5-15.5) % Plt Count 187 (150-450) k/uL MPV 6.7 Neutrophils % 62 % Lymphocytes % 27 % Monocytes % 7 % Eosinophils % 2 % Basophils % 1 % Neutrophils # 5.2 (1.3-7.7) k/uL Lymphocytes # 2.2 (1.0-4.8) k/uL Monocytes # 0.6 (0-1.0) k/uL Eosinophils # 0.2 (0-0.7) k/uL Basophils # 0.1 (0-0.2) k/uL PT 11.2 (10.0-12.5) sec INR 1.0 (<1.2) APTT 25.3 (22.0-30.0) sec Sodium (137-145) mmol/L Potassium (3.5-5.1) mmol/L Chloride (98-107) mmol/L Carbon Dioxide (22-30) mmol/L Anion Gap mmol/L BUN (9-20) mg/dL Creatinine (0.66-1.25) mg/dL Est GFR (CKD-EPI)AfAm (>60 ml/min/1.73 sqM) Est GFR (CKD-EPI)NonAf (>60 ml/min/1.73 sqM) Glucose (74-99) mg/dL Calcium (8.4-10.2) mg/dL Total Bilirubin (0.2-1.3) mg/dL AST (17-59) U/L ALT (4-49) U/L Alkaline Phosphatase (38-126) U/L Total Protein (6.3-8.2) g/dL Albumin (3.5-5.0) g/dL Urine Color Red Urine Appearance Bloody (Clear) Urine RBC >182 H (0-5) /hpf Urine WBC 8 H (0-5) /hpf 02/29/24 Range/Units 16:27 WBC (3.8-10.6) k/uL RBC (4.30-5.90) m/uL Hgb (13.0-17.5) gm/dL Hct (39.0-53.0) % MCV (80.0-100.0) fL MCH (25.0-35.0) pg MCHC (31.0-37.0) g/dL RDW (11.5-15.5) % Plt Count (150-450) k/uL MPV Neutrophils % % Lymphocytes % % Monocytes % % Eosinophils % % Basophils % % Neutrophils # (1.3-7.7) k/uL Lymphocytes # (1.0-4.8) k/uL Monocytes # (0-1.0) k/uL Eosinophils # (0-0.7) k/uL Basophils # (0-0.2) k/uL PT (10.0-12.5) sec INR (<1.2) APTT (22.0-30.0) sec Sodium 138 (137-145) mmol/L Potassium 4.3 (3.5-5.1) mmol/L Chloride 101 (98-107) mmol/L Carbon Dioxide 28 (22-30) mmol/L Anion Gap 9 mmol/L BUN 20 (9-20) mg/dL Creatinine 1.07 (0.66-1.25) mg/dL Est GFR (CKD-EPI)AfAm 73 (>60 ml/min/1.73 sqM) Est GFR (CKD-EPI)NonAf 63 (>60 ml/min/1.73 sqM) Glucose 114 H (74-99) mg/dL Calcium 9.4 (8.4-10.2) mg/dL Total Bilirubin 0.6 (0.2-1.3) mg/dL AST 26 (17-59) U/L ALT 16 (4-49) U/L Alkaline Phosphatase 82 (38-126) U/L Total Protein 7.3 (6.3-8.2) g/dL Albumin 4.0 (3.5-5.0) g/dL Urine Color Urine Appearance (Clear) Urine RBC (0-5) /hpf Urine WBC (0-5) /hpf - Radiology Data Radiology results: report reviewed, image reviewed Disposition Clinical Impression: Hematuria, Renal cyst Disposition: HOME SELF-CARE Condition: Stable Instructions (If sedation given, give patient instructions): Hematuria (ED) Additional Instructions: Do not take Eliquis for 24 to 48 hours. Follow-up with PCP and urology in the next 1 to 2 days. Return to the ER for any new or worsening concerns including but not limited to unable to urinate, fevers, pain or any change in symptoms. Is patient prescribed a controlled substance at d/c from ED?: No Referrals: Jamil Nieves MD [Primary Care Provider] - 1-2 days Lyle Stauffer MD [STAFF PHYSICIAN] - 1-2 days Time of Disposition: 19:20
[2024-02-29 16:41] LABS: Basophils # (A) 0.1 k/uL (0-0.2); Basophils % (A) 1 %; Eosinophils # (A) 0.2 k/uL (0-0.7); Eosinophils % (A) 2 %; HCT 48.9 % (39.0-53.0); HGB 16.4 gm/dL (13.0-17.5); Lymphocytes # (A) 2.2 k/uL (1.0-4.8); Lymphocytes % (A) 27 %; MCH 31.9 pg (25.0-35.0); MCHC 33.6 g/dL (31.0-37.0); MCV 95.2 fL (80.0-100.0); Mean Platelet Volume 6.7; Monocytes # (A) 0.6 k/uL (0-1.0); Monocytes % (A) 7 %; Neutrophils # (A) 5.2 k/uL (1.3-7.7); Neutrophils % (A) 62 %; Platelet Count 187 k/uL (150-450); RBC 5.13 m/uL (4.30-5.90); RDW 13.7 % (11.5-15.5); WBC 8.5 k/uL (3.8-10.6)
[2024-02-29 16:51] LABS: Partial Thromboplastin Time 25.3 sec (22.0-30.0); Prothrombin Time 11.2 sec (10.0-12.5)
[2024-02-29 17:05] LABS: ALT 16 U/L (4-49); AST 26 U/L (17-59); African American GFR (CKD) 73 (>60 ml/min/1.73 sqM); Alkaline Phosphatase 82 U/L (38-126); Anion Gap 9 mmol/L; Blood Urea Nitrogen 20 mg/dL (9-20); Calcium 9.4 mg/dL (8.4-10.2); Carbon Dioxide 28 mmol/L (22-30); Chloride 101 mmol/L (98-107); Glucose 114 mg/dL (74-99); Non-African American GFR(CKD) 63 (>60 ml/min/1.73 sqM); Potassium 4.3 mmol/L (3.5-5.1); Sodium 138 mmol/L (137-145); Total Bilirubin 0.6 mg/dL (0.2-1.3); Total Protein 7.3 g/dL (6.3-8.2)
--- NOTE | 2024-02-29 18:24 | US ---
EXAMINATION TYPE: US renals and bladder DATE OF EXAM: 02/29/2024 COMPARISON: NONE CLINICAL INDICATION: Male, 84 years old with history of hematuria; Patient states hematuria. No abd p ain or known kidney issues TECHNIQUE: Grayscale imaging of the bilateral kidneys and urinary bladder: FINDINGS: EXAM MEASUREMENTS: Right Kidney: 11.7 x 4.7 x 5.1 cm Left Kidney: 9.5 x 5.8 x 5.5 cm Right Kidney: wnl Left Kidney: There is a 2.1 x 2.6 x 2.2cm anechoic appearing lesion in the superior pole with a 4mm e chogenic structure seen within Bladder: wnl. Bilateral Jets seen: Yes Incidental findings: 1. prominent prostate measuring 5.3 x 4.2 x 4.5cm with a 1.3 x 1.6 x 1.4cm echogenic area seen within likely reflecting calcification 2. small 0.8 x 1.1 x 1.0cm thin-walled within the right liver lobe There is no evidence for hydronephrosis at this point in time. There is 2.6 cm thin-walled cystic les ion in the left kidney with internal 4 mm calcification . The urinary bladder is anechoic. Enlarged prostate is present. IMPRESSION: Source of hematuria is not definitely identified. If symptoms persist further investigation with CT u rogram would be warranted. [facility], , 02/29/2024 6:21 PM
--- NOTE | 2024-02-29 19:04 | CT ---
EXAMINATION TYPE: CT abdomen pelvis wo con DATE OF EXAM: 02/29/2024 HISTORY: hematuria x [address] DLP: 586.4 mGycm. Automated Exposure Control for Dose Reduction was Utilized. TECHNIQUE: CT scan of the abdomen and pelvis is performed without oral or IV contrast. COMPARISON: Same-day ultrasound FINDINGS: Within the limitations of a non-contrast study, the following observations are made. LUNG BASES: Reticular opacities bilaterally favor fibrosis. LIVER/GB: There are 2 tiny rounded low-density lesions in the liver favoring simple cysts. Tiny depen dent calcified gallstones. Gallbladder shows no surrounding inflammatory change. No biliary dilatatio n. PANCREAS: Punctate calcification in the pancreatic tail coronal image 55. SPLEEN: No significant abnormality is seen. ADRENALS: No significant abnormality is seen. KIDNEYS: There is 2.4 cm simple appearing thin-walled cyst anteriorly from the upper pole left kidney . This corresponds with ultrasound. No nephrolithiasis or hydronephrosis seen bilaterally. BOWEL: Incidental 1.0 cm air-filled duodenal diverticulum second portion image 43. Diffuse colonic di verticulosis most prominent involving the sigmoid colon. No CT evidence for acute diverticulitis. No abnormal small or large bowel dilatation. GENITAL ORGANS: Enlarged prostate consistent with BPH with transitional zone calcifications posterior ly. LYMPH NODES: No greater than 1cm abdominal or pelvic lymph nodes are appreciated. OSSEOUS STRUCTURES: Advanced disc space narrowing lumbosacral junction with disc calcification. Mild to moderate disc space narrowing and vacuum disc phenomenon at L1-L2 and L2-L3 levels. Small amount o f air in the spinal canal is noted. OTHER: Moderate calcified plaque in the ectatic abdominal aorta with aneurysmal to 3.5 cm AP diameter axial image 66. Small Right and moderate size left fat containing inguinal hernias. Tiny fat-contain ing umbilical hernia sagittal image 69. IMPRESSION: 1. No renal stones or hydronephrosis is seen bilaterally. Source of hematuria not distinctly identifi ed. If symptoms persist further investigation with outpatient CT urogram would be advised. 2. Enlarged prostate consistent with BPH. 3. Ectatic and atherosclerotic abdominal aorta with aneurysmal up to 3.5 cm noted. 4. Colonic diverticulosis without CT evidence for acute diverticulitis. [facility], Workstation: [employer], 02/29/2024 7:02 PM
[2024-02-29 19:30] VITALS: BP 160/98; PULSE 71; RESP 16; TEMP 97.8
== END 2024-02-29 19:30 | disposition home or self-care (01) ==
LOC: EC 15:52
DX: N28.1 Cyst of kidney, acquired (principal); I48.91 Unspecified atrial fibrillation; F17.200 Nicotine dependence, unspecified, uncomplicated; Z79.01 Long term (current) use of anticoagulants; Z91.041 Radiographic dye allergy status
CPT/HCPCS: 36415; 51798; 74176; 76770; 80053; 81001; 85025; 85610; 85730; 87086; 99284; 99406

== ENCOUNTER → 2024-03-30 | Outpatient (CLI) | payer MEDICARE ==
[2024-03-30 17:13] LABS: Amorphous Sediment,Urine Rare /hpf; Appearance,Urine Cloudy (Clear); Bacteria,Urine Rare /hpf; Bilirubin,Urine Negative (Negative); Blood,Urine Large (Negative); Calcium Oxalate Crystals,Urine Occasional /hpf; Color,Urine Yellow; Glucose,Urine (UA) Negative (Negative); Hyaline Casts,Urine 76 /lpf (0-2); Ketones,Urine Negative (Negative); Leukocyte Esterase,Urine Small (Negative); Mucus,Urine Many /hpf; Nitrite,Urine Negative (Negative); Protein,Urine 1+ (Negative); RBC,Urine 27 /hpf (0-5); Specific Gravity,Urine 1.028 (1.001-1.035); Squamous Epithelial Cell,Urine 1 /hpf (0-4); WBC,Urine 6 /hpf (0-5)
[2024-03-31 03:10] LABS: Basophils # (A) 0.04 X 10*3/uL (0.00-0.10); Basophils % (A) 0.2 %; Eosinophils # (A) 0.02 X 10*3/uL (0.04-0.35); Eosinophils % (A) 0.1 %; HCT 44.6 % (39.6-50.0); HGB 14.1 g/dL (13.0-17.0); Lymphocytes # (A) 2.12 X 10*3/uL (0.90-5.00); Lymphocytes % (A) 13.2 %; MCHC 31.6 g/dL (32.0-37.0); MCV 94.9 FL (80.0-97.0); Mean Platelet Volume 9.6 FL (9.5-12.2); Monocytes # (A) 1.15 X 10*3/uL (0.20-1.00); Monocytes % (A) 7.1 %; NRBC Per 100 WBC 0 X 10*3/uL (0.00-0.01); Neutrophils # (A) 12.74 X 10*3/uL (1.80-7.70); Neutrophils % (A) 79.1 %; Platelet Count 343 X 10*3/uL (140-440); RDW 13.4 % (11.5-14.5); WBC 16.12 X 10*3/uL (4.50-10.00)
[2024-03-31 03:50] LABS: ALT 33 U/L (10-49); AST 48 U/L (14-35); Albumin 3.2 g/dL (3.8-4.9); Alkaline Phosphatase 90 U/L (41-126); BUN/Creat Ratio 19.77 Ratio (12.00-20.00); Blood Urea Nitrogen 25.7 mg/dL (9.0-27.0); Calcium 9.1 mg/dL (8.7-10.3); Carbon Dioxide 24.8 mmol/L (21.6-31.8); Chloride 98 mmol/L (96-109); Globulin 3.2 g/dL (1.6-3.3); Glucose 132 mg/dL (70-110); Potassium 5.3 mmol/L (3.5-5.5); Sodium 133 mmol/L (135-145); Total Bilirubin 0.5 mg/dL (0.3-1.2); Total Protein 6.4 g/dL (6.2-8.2)
== END | disposition home or self-care (01) ==
LOC: LABWHC1 15:50
PROVIDERS: ATTEND Family Medicine
DX: I10 Essential (primary) hypertension (principal); R31.9 Hematuria, unspecified; R73.9 Hyperglycemia, unspecified
CPT/HCPCS: 36415; 80053; 81001; 83036; 85025

== ENCOUNTER → 2024-04-11 | Outpatient (CLI) | payer MEDICARE ==
[2024-04-11 15:53] LABS: Basophils # (A) 0.05 X 10*3/uL (0.00-0.10); Basophils % (A) 0.3 %; Eosinophils # (A) 0.05 X 10*3/uL (0.04-0.35); Eosinophils % (A) 0.3 %; HCT 41.7 % (39.6-50.0); HGB 13.3 g/dL (13.0-17.0); Lymphocytes # (A) 1.66 X 10*3/uL (0.90-5.00); Lymphocytes % (A) 11.1 %; MCH 29.3 pg (27.0-32.0); MCHC 31.9 g/dL (32.0-37.0); MCV 91.9 FL (80.0-97.0); Mean Platelet Volume 8.9 FL (9.5-12.2); Monocytes # (A) 0.99 X 10*3/uL (0.20-1.00); Monocytes % (A) 6.6 %; NRBC Per 100 WBC 0 X 10*3/uL (0.00-0.01); Neutrophils # (A) 12.19 X 10*3/uL (1.80-7.70); Neutrophils % (A) 81.4 %; Platelet Count 436 X 10*3/uL (140-440); RBC 4.54 X 10*6/uL (4.40-5.60); RDW 13.6 % (11.5-14.5); WBC 14.99 X 10*3/uL (4.50-10.00)
== END | disposition home or self-care (01) ==
LOC: LABWHC1 11:47
PROVIDERS: ATTEND Family Medicine
DX: I10 Essential (primary) hypertension (principal)
CPT/HCPCS: 36415; 85025

== ENCOUNTER → 2024-06-04 | Outpatient (CLI) | payer MEDICARE ==
--- NOTE | 2024-06-04 09:30 | US ---
EXAMINATION TYPE: US st tissue head/neck DATE OF EXAM: 06/04/2024 COMPARISON: NONE CLINICAL INDICATION: Male, 84 years old with history of R59.0 LYMPHADENOPATHY; Patient states doctor wanted left neck to be scanned for nodes TECHNIQUE: Soft tissue scan of neck FINDINGS: Associate Embalmer/Funeral Director notes: No lymphadenopathy seen on today's scan IMPRESSION: Scanning along the left side of the neck along the patient directed area of concern shows no sonographic evidence for lymphadenopathy. Any palpable area should be followed clinically. If any progressive enlargement is noted, the patient can be rescanned. [facility], , 06/04/2024 9:27 AM
== END | disposition home or self-care (01) ==
LOC: RADUSWWP 08:30
PROVIDERS: ATTEND Internal Medicine
DX: R59.0 Localized enlarged lymph nodes (principal)
CPT/HCPCS: 76536